=== PATIENT | female | born 1950 | race Caucasian/White ===

== ENCOUNTER 2020-11-04 22:51 | Inpatient (IN) | payer OTHER, SELFPAY ==
[~2020-11-04] VITALS: Ht 152.4 cm; Wt 74.8 kg
[2020-11-04 23:00] VITALS: BP_SYST 146
[2020-11-04] MEDS ORDERED: AZITHROMYCIN 250 MG TABLET PO ONE (23:15)
[2020-11-04] MEDS ORDERED: cefTRIAXone 1 GM in LIDOCAINE 1%, 20 ML MDV 2.1 ML IM ONE (23:15)
[2020-11-04] MEDS ORDERED: DEXAMETHASONE SOD PHOSPHATE 10 MG/ML VIAL IM ONE (23:15)
[2020-11-04] MEDS ORDERED: DEXAMETHASONE SOD PHOSPHATE 10 MG/ML VIAL IVP ONE (23:45)
[2020-11-04] MEDS ORDERED: cefTRIAXone 1 GM IVPB PREMIX 50 ML IV ONE (23:45)
[2020-11-04] MEDS ORDERED: AZITHROMYCIN 500 MG in NS 250 ML IV ONE (23:45)
[2020-11-05] VITALS (18 sets, daily range): BP systolic 86–158
[2020-11-05 00:05] LABS: HEMATOCRIT 41.7 % (36-48); HEMOGLOBIN 14.1 g/dL (12.0-16.0); MEAN CORPUSCULAR VOLUME 91 fL (79.0-98.0); RED BLOOD CELL COUNT(AUTO) 4.58 MIL/uL (4.2-6.2); WHITE BLOOD COUNT (AUTO) 14.9 K/uL (4.8-10.8)
[2020-11-05 00:06] LABS: BASOPHILS # (AUTO) 0.1 K/uL (0.0-0.2); BASOPHILS % (AUTO) 0.6 % (0.0-2.0); LYMPHOCYTES # (AUTO) 1.6 K/uL (1.0-5.5); LYMPHOCYTES % (AUTO) 11.1 % (20.5-51.5); MEAN CORPUSCULAR HEMOGLOBIN 31 pg (27-31); MEAN CORPUSCULAR HGB CONC 34 % (32-36); MONOCYTES # (AUTO) 0.9 K/uL (0.0-1.0); MONOCYTES % (AUTO) 6.4 % (1.7-9.3); NEUTROPHILS # (AUTO) 12.2 K/uL (1.8-7.7); NEUTROPHILS % (AUTO) 81.9 % (40.0-70.0); PLATELET COUNT (AUTO) 292 K/uL (130-430); RED CELL DISTRIBUTION WIDTH 14.1 % (9.0-15.0)
[2020-11-05] MEDS ORDERED: AZITHROMYCIN 500 MG/VIAL (ZITHROMAX) IV ONE (00:11)
[2020-11-05 00:16] LABS: INR 1.2 (0.8-1.2); PROTHROMBIN TIME 11.8 SECS (9.5-12.5)
[2020-11-05 00:26] LABS: ALBUMIN 2.5 g/dL (3.4-4.8); CALCIUM 8.7 mg/dL (8.4-11.0); CREATININE 1.13 mg/dL (0.55-1.30); TOTAL BILIRUBIN 0.5 mg/dL (0.0-1.0)
[2020-11-05] MEDS ORDERED: DILT180C67 PO (00:29)
[2020-11-05] MEDS ORDERED: NACL 0.9% 1,000 ML IV ONE (00:45)
[2020-11-05] MEDS ORDERED: ENOXAPARIN SODIUM 60 MG/0.6 ML SYRINGE SUBCUT ONE ×2 (00:45→12:00)
[2020-11-05] MEDS ORDERED: ENOXAPARIN SODIUM 80 MG/0.8 ML SYRINGE ONE (01:04)
[2020-11-05 01:10] LABS: C-REACTIVE PROTEIN QUANT 28.3 mg/dL (0-0.5)
[2020-11-05] MEDS ORDERED: ONDANSETRON HCL 4 MG/2 ML VIAL IVP PRN (02:15)
[2020-11-05] MEDS ORDERED: POTASSIUM CHLORIDE 20 MEQ TAB.PRT.SR PO PRN ×2 (08:15→09:00)
[2020-11-05] MEDS ORDERED: MAGNESIUM OXIDE 400 MG TABLET PO PRN (08:15)
[2020-11-05] MEDS ORDERED: DEXTROSE 50% JECT 50 ML DISP.SYRIN IVP PRN (09:00)
[2020-11-05] MEDS: DEXAMETHASONE SOD PHOSPHATE 10 MG/ML VIAL IVP SCH (09:00)
[2020-11-05] MEDS ORDERED: ENOXAPARIN SODIUM 40 MG/0.4 ML SYRINGE SUBCUT ONE (09:00)
[2020-11-05] MEDS ORDERED: DILTIAZEM HCL 180 MG CAP.SR.24H PO ONE (09:15)
[2020-11-05] MEDS ORDERED: guaiFENesin ER 600 MG TAB PO ONE (10:00)
[2020-11-05] MEDS ORDERED: MELATONIN 3 MG TABLET PO PRN (10:00)
[2020-11-05] MEDS: ASCORBIC ACID 500 MG TABLET PO SCH (10:45)
[2020-11-05] MEDS: CHOLECALCIFEROL (VITAMIN D-3) 400 UNIT TABLET PO SCH (10:45)
[2020-11-05 11:28] LABS: BILIRUBIN,URINE NEGATIVE (NEGATIVE); COLOR,URINE YELLOW (YELLOW); GLUCOSE,URINE NEGATIVE (NEGATIVE); KETONES,URINE NEGATIVE (NEGATIVE); LEUKOCYTE ESTERASE ,URINE NEGATIVE (NEGATIVE); NITRITE, URINE POSITIVE (NEGATIVE); PH,URINE 6.5 (5.0-8.0); PROTEIN URINE NEGATIVE (NEGATIVE); UROBILINOGEN,URINE 0.2 (0.2-1.0)
[2020-11-05] MEDS ORDERED: *LOVENOX0.75MG/KG Q12H/PHARMACY XX ONE (11:30)
[2020-11-05] MEDS: AZITHROMYCIN 500 MG in NS 250 ML IV SCH (12:00)
[2020-11-05 12:39] LABS: BLOOD, URINE TRACE (NEGATIVE)
[2020-11-05 12:40] LABS: CLARITY/URINE SLIGHTLY HAZY (CLEAR)
[2020-11-05 12:49] LABS: BACTERIA,URINE FEW /HPF (None Seen); MUCUS,URINE 1+ /LPF (None Seen); RBC,URINE 0-3 /HPF (0-3); WBC,URINE 0-3 /HPF (0-3)
[2020-11-05] MEDS: PIPERACILLIN/TAZO 2.25G/DEX-IS 50 ML IV SCH ×2 (13:00→18:30)
[2020-11-05] MEDS ORDERED: cefTRIAXone 1 GM in D5W 50 ML IV SCH (21:00)
[2020-11-05] MEDS ORDERED: AZITHROMYCIN 250 MG TABLET PO SCH (21:00)
[2020-11-05] MEDS: guaiFENesin ER 600 MG TAB PO SCH (21:21)
[2020-11-05] MEDS: ENOXAPARIN SODIUM 60 MG/0.6 ML SYRINGE SUBCUT SCH (21:22)
[2020-11-06] VITALS (24 sets, daily range): BP systolic 122–152
[2020-11-06] MEDS: PIPERACILLIN/TAZO 2.25G/DEX-IS 50 ML IV SCH ×4 (02:46→17:23)
[2020-11-06 06:25] LABS: BASOPHILS % (AUTO) 0.2 % (0.0-2.0); HEMATOCRIT 36.6 % (36-48); HEMOGLOBIN 12.3 g/dL (12.0-16.0); LYMPHOCYTES # (AUTO) 2.4 K/uL (1.0-5.5); LYMPHOCYTES % (AUTO) 12.7 % (20.5-51.5); MEAN CORPUSCULAR HEMOGLOBIN 31 pg (27-31); MEAN CORPUSCULAR HGB CONC 34 % (32-36); MEAN CORPUSCULAR VOLUME 91 fL (79.0-98.0); MONOCYTES % (AUTO) 5.4 % (1.7-9.3); NEUTROPHILS # (AUTO) 15.6 K/uL (1.8-7.7); NEUTROPHILS % (AUTO) 81.7 % (40.0-70.0); PLATELET COUNT (AUTO) 339 K/uL (130-430); RED BLOOD CELL COUNT(AUTO) 4.02 MIL/uL (4.2-6.2); RED CELL DISTRIBUTION WIDTH 13.8 % (9.0-15.0); WHITE BLOOD COUNT (AUTO) 19.1 K/uL (4.8-10.8)
[2020-11-06 07:54] LABS: ALBUMIN 2.3 g/dL (3.4-4.8); CALCIUM 8.8 mg/dL (8.4-11.0); CREATININE 0.81 mg/dL (0.55-1.30); POTASSIUM 4.2 mmol/L (3.5-5.1); TOTAL BILIRUBIN 0.4 mg/dL (0.0-1.0)
[2020-11-06] MEDS: DEXAMETHASONE SOD PHOSPHATE 10 MG/ML VIAL IVP SCH (08:48)
[2020-11-06] MEDS: guaiFENesin ER 600 MG TAB PO SCH ×2 (08:48→22:18)
[2020-11-06] MEDS: ASCORBIC ACID 500 MG TABLET PO SCH (08:48)
[2020-11-06] MEDS: CHOLECALCIFEROL (VITAMIN D-3) 400 UNIT TABLET PO SCH (08:48)
[2020-11-06] MEDS: ENOXAPARIN SODIUM 60 MG/0.6 ML SYRINGE SUBCUT SCH ×2 (08:49→22:19)
[2020-11-06] MEDS: DILTIAZEM HCL 180 MG CAP.SR.24H PO SCH (08:49)
[2020-11-06] MEDS ORDERED: ENOXAPARIN SODIUM 40 MG/0.4 ML SYRINGE SUBCUT SCH (09:00)
[2020-11-06] MEDS: AZITHROMYCIN 500 MG in NS 250 ML IV SCH (11:44)
[2020-11-06] MEDS: LORazepam 2 MG/ML VIAL IVP PRN (11:47)
[2020-11-06] MEDS: INSULIN LISPRO SLIDING SCALE 100 UNITS/ML VIAL (humaLOG) SUBCUT PRN (17:55)
[2020-11-07] VITALS (23 sets, daily range): BP systolic 125–152
[2020-11-07] MEDS: PIPERACILLIN/TAZO 2.25G/DEX-IS 50 ML IV SCH ×4 (05:43→17:31)
[2020-11-07 06:26] LABS: BASOPHILS # (AUTO) 0.1 K/uL (0.0-0.2); BASOPHILS % (AUTO) 0.3 % (0.0-2.0); HEMATOCRIT 36.3 % (36-48); HEMOGLOBIN 12.2 g/dL (12.0-16.0); LYMPHOCYTES # (AUTO) 2.2 K/uL (1.0-5.5); LYMPHOCYTES % (AUTO) 10.9 % (20.5-51.5); MEAN CORPUSCULAR HEMOGLOBIN 31 pg (27-31); MEAN CORPUSCULAR HGB CONC 34 % (32-36); MEAN CORPUSCULAR VOLUME 91 fL (79.0-98.0); MONOCYTES # (AUTO) 1.1 K/uL (0.0-1.0); MONOCYTES % (AUTO) 5.6 % (1.7-9.3); NEUTROPHILS # (AUTO) 16.8 K/uL (1.8-7.7); NEUTROPHILS % (AUTO) 83.2 % (40.0-70.0); PLATELET COUNT (AUTO) 343 K/uL (130-430); RED BLOOD CELL COUNT(AUTO) 3.97 MIL/uL (4.2-6.2); RED CELL DISTRIBUTION WIDTH 14.1 % (9.0-15.0); WHITE BLOOD COUNT (AUTO) 20.2 K/uL (4.8-10.8)
[2020-11-07] MEDS: INSULIN LISPRO SLIDING SCALE 100 UNITS/ML VIAL (humaLOG) SUBCUT PRN ×2 (06:50→12:37)
[2020-11-07 07:04] LABS: CALCIUM 8.7 mg/dL (8.4-11.0); CREATININE 0.78 mg/dL (0.55-1.30)
[2020-11-07] MEDS: guaiFENesin ER 600 MG TAB PO SCH ×2 (09:50→22:36)
[2020-11-07] MEDS: ASCORBIC ACID 500 MG TABLET PO SCH (09:51)
[2020-11-07] MEDS: CHOLECALCIFEROL (VITAMIN D-3) 400 UNIT TABLET PO SCH (09:51)
[2020-11-07] MEDS: DEXAMETHASONE SOD PHOSPHATE 10 MG/ML VIAL IVP SCH (09:51)
[2020-11-07] MEDS: DILTIAZEM HCL 180 MG CAP.SR.24H PO SCH (09:51)
[2020-11-07] MEDS: ENOXAPARIN SODIUM 60 MG/0.6 ML SYRINGE SUBCUT SCH ×2 (09:54→22:36)
[2020-11-07] MEDS: AZITHROMYCIN 500 MG in NS 250 ML IV SCH (12:30)
[2020-11-08] VITALS (24 sets, daily range): BP systolic 125–182
[2020-11-08] MEDS: PIPERACILLIN/TAZO 2.25G/DEX-IS 50 ML IV SCH ×4 (01:08→18:22)
[2020-11-08 06:42] LABS: HEMATOCRIT 37.3 % (36-48); HEMOGLOBIN 12.4 g/dL (12.0-16.0); LYMPHOCYTES # (AUTO) 1.8 K/uL (1.0-5.5); LYMPHOCYTES % (AUTO) 10.5 % (20.5-51.5); MEAN CORPUSCULAR HEMOGLOBIN 30 pg (27-31); MEAN CORPUSCULAR HGB CONC 33 % (32-36); MEAN CORPUSCULAR VOLUME 91 fL (79.0-98.0); MONOCYTES # (AUTO) 0.9 K/uL (0.0-1.0); MONOCYTES % (AUTO) 5.3 % (1.7-9.3); NEUTROPHILS # (AUTO) 14.3 K/uL (1.8-7.7); NEUTROPHILS % (AUTO) 84.2 % (40.0-70.0); PLATELET COUNT (AUTO) 326 K/uL (130-430); RED BLOOD CELL COUNT(AUTO) 4.08 MIL/uL (4.2-6.2); RED CELL DISTRIBUTION WIDTH 13.7 % (9.0-15.0)
[2020-11-08 08:18] LABS: ALBUMIN 2.4 g/dL (3.4-4.8); C-REACTIVE PROTEIN QUANT 5.5 mg/dL (0-0.5); CALCIUM 8.1 mg/dL (8.4-11.0); CREATININE 0.76 mg/dL (0.55-1.30); TOTAL BILIRUBIN 0.6 mg/dL (0.0-1.0)
[2020-11-08 08:53] LABS: ERYTHROCYTE SEDIMENTATION RATE 32 MM/HR (0-20)
[2020-11-08] MEDS: DEXAMETHASONE SOD PHOSPHATE 10 MG/ML VIAL IVP SCH (10:11)
[2020-11-08] MEDS: ENOXAPARIN SODIUM 60 MG/0.6 ML SYRINGE SUBCUT SCH ×2 (10:11→21:49)
[2020-11-08] MEDS: guaiFENesin ER 600 MG TAB PO SCH ×2 (12:43→21:50)
[2020-11-08] MEDS: DILTIAZEM HCL 180 MG CAP.SR.24H PO SCH (12:43)
[2020-11-08] MEDS: ASCORBIC ACID 500 MG TABLET PO SCH (12:43)
[2020-11-08] MEDS: CHOLECALCIFEROL (VITAMIN D-3) 400 UNIT TABLET PO SCH (12:44)
[2020-11-08] MEDS: AZITHROMYCIN 500 MG in NS 250 ML IV SCH (12:54)
[2020-11-08] MEDS: LORazepam 2 MG/ML VIAL IVP PRN (15:02)
[2020-11-08] MEDS: methylPREDNISolone SOD SUCC 40 MG/ML VIAL IVP SCH (21:50)
[2020-11-09] VITALS (24 sets, daily range): BP systolic 114–174
[2020-11-09] MEDS: PIPERACILLIN/TAZO 2.25G/DEX-IS 50 ML IV SCH ×4 (00:52→17:21)
[2020-11-09 08:42] LABS: BASOPHILS # (AUTO) 0.1 K/uL (0.0-0.2); BASOPHILS % (AUTO) 0.4 % (0.0-2.0); LYMPHOCYTES # (AUTO) 1.6 K/uL (1.0-5.5); LYMPHOCYTES % (AUTO) 9.7 % (20.5-51.5); MEAN CORPUSCULAR HEMOGLOBIN 31 pg (27-31); MEAN CORPUSCULAR HGB CONC 33 % (32-36); MEAN CORPUSCULAR VOLUME 91 fL (79.0-98.0); MONOCYTES # (AUTO) 0.7 K/uL (0.0-1.0); MONOCYTES % (AUTO) 4.1 % (1.7-9.3); NEUTROPHILS # (AUTO) 14.3 K/uL (1.8-7.7); NEUTROPHILS % (AUTO) 85.8 % (40.0-70.0); PLATELET COUNT (AUTO) 336 K/uL (130-430); RED BLOOD CELL COUNT(AUTO) 4.27 MIL/uL (4.2-6.2); RED CELL DISTRIBUTION WIDTH 13.8 % (9.0-15.0); WHITE BLOOD COUNT (AUTO) 16.7 K/uL (4.8-10.8)
[2020-11-09 08:53] LABS: C-REACTIVE PROTEIN QUANT 5.5 mg/dL (0-0.5); CALCIUM 8.1 mg/dL (8.4-11.0); CREATININE 0.83 mg/dL (0.55-1.30)
[2020-11-09] MEDS: guaiFENesin ER 600 MG TAB PO SCH ×2 (09:00→20:15)
[2020-11-09] MEDS: methylPREDNISolone SOD SUCC 40 MG/ML VIAL IVP SCH ×2 (09:21→20:09)
[2020-11-09] MEDS: DILTIAZEM HCL 180 MG CAP.SR.24H PO SCH (09:22)
[2020-11-09] MEDS: CHOLECALCIFEROL (VITAMIN D-3) 400 UNIT TABLET PO SCH (09:22)
[2020-11-09] MEDS: ASCORBIC ACID 500 MG TABLET PO SCH (09:22)
[2020-11-09] MEDS: ENOXAPARIN SODIUM 60 MG/0.6 ML SYRINGE SUBCUT SCH ×2 (09:23→20:10)
[2020-11-09 09:26] LABS: ERYTHROCYTE SEDIMENTATION RATE 29 MM/HR (0-20)
[2020-11-09] MEDS: AZITHROMYCIN 500 MG in NS 250 ML IV SCH (13:08)
[2020-11-09] MEDS ORDERED: methylPREDNISolone SOD SUCC 40 MG/ML VIAL ONE (20:08)
[2020-11-09] MEDS ORDERED: ENOXAPARIN SODIUM 60 MG/0.6 ML SYRINGE ONE (20:09)
[2020-11-10] VITALS (23 sets, daily range): BP systolic 136–168
[2020-11-10] MEDS: PIPERACILLIN/TAZO 2.25G/DEX-IS 50 ML IV SCH ×4 (00:06→17:39)
[2020-11-10] MEDS: ASCORBIC ACID 500 MG TABLET PO SCH (08:36)
[2020-11-10] MEDS: DILTIAZEM HCL 180 MG CAP.SR.24H PO SCH (08:36)
[2020-11-10] MEDS: guaiFENesin ER 600 MG TAB PO SCH ×2 (08:36→20:23)
[2020-11-10] MEDS: CHOLECALCIFEROL (VITAMIN D-3) 400 UNIT TABLET PO SCH (08:36)
[2020-11-10] MEDS: ENOXAPARIN SODIUM 60 MG/0.6 ML SYRINGE SUBCUT SCH ×2 (08:38→20:27)
[2020-11-10 10:39] LABS: BASOPHILS # (AUTO) 0.1 K/uL (0.0-0.2); BASOPHILS % (AUTO) 0.2 % (0.0-2.0); HEMOGLOBIN 13.1 g/dL (12.0-16.0); LYMPHOCYTES # (AUTO) 2.1 K/uL (1.0-5.5); LYMPHOCYTES % (AUTO) 10.2 % (20.5-51.5); MEAN CORPUSCULAR HEMOGLOBIN 31 pg (27-31); MEAN CORPUSCULAR HGB CONC 34 % (32-36); MEAN CORPUSCULAR VOLUME 91 fL (79.0-98.0); MONOCYTES # (AUTO) 0.6 K/uL (0.0-1.0); MONOCYTES % (AUTO) 3.2 % (1.7-9.3); NEUTROPHILS # (AUTO) 17.6 K/uL (1.8-7.7); PLATELET COUNT (AUTO) 358 K/uL (130-430); RED CELL DISTRIBUTION WIDTH 13.8 % (9.0-15.0); WHITE BLOOD COUNT (AUTO) 20.4 K/uL (4.8-10.8)
[2020-11-10 11:04] LABS: C-REACTIVE PROTEIN QUANT 3.1 mg/dL (0-0.5); CALCIUM 8.1 mg/dL (8.4-11.0); CREATININE 0.68 mg/dL (0.55-1.30); POTASSIUM 3.8 mmol/L (3.5-5.1)
[2020-11-10] MEDS: methylPREDNISolone SOD SUCC 40 MG/ML VIAL IVP SCH ×2 (11:18→20:22)
[2020-11-10 11:40] LABS: ERYTHROCYTE SEDIMENTATION RATE 31 MM/HR (0-20)
[2020-11-10] MEDS: FLUCONAZOLE 100 mg/ NS 50 ML IV SCH (12:21)
[2020-11-10 14:02] LABS: NEUTROPHILS % (AUTO) 86.4 % (40.0-70.0)
[2020-11-10] MEDS ORDERED: *TPN PER PHARMACY XX PRN (17:30)
[2020-11-11] VITALS (26 sets, daily range): BP systolic 115–173
[2020-11-11] MEDS: PIPERACILLIN/TAZO 2.25G/DEX-IS 50 ML IV SCH ×5 (02:00→23:26)
[2020-11-11] MEDS: LORazepam 2 MG/ML VIAL IVP PRN ×2 (05:24→05:25)
[2020-11-11 06:56] LABS: ALBUMIN 2.3 g/dL (3.4-4.8); CALCIUM 7.8 mg/dL (8.4-11.0); CREATININE 0.85 mg/dL (0.55-1.30); PHOSPHORUS 3.2 mg/dL (2.7-4.5); POTASSIUM 3.9 mmol/L (3.5-5.1); TOTAL BILIRUBIN 0.5 mg/dL (0.0-1.0)
[2020-11-11 07:43] LABS: C-REACTIVE PROTEIN QUANT 13.1 mg/dL (0-0.5)
[2020-11-11 08:09] LABS: ERYTHROCYTE SEDIMENTATION RATE 43 MM/HR (0-20)
[2020-11-11] MEDS: methylPREDNISolone SOD SUCC 40 MG/ML VIAL IVP SCH ×2 (08:56→21:56)
[2020-11-11] MEDS: guaiFENesin ER 600 MG TAB PO SCH ×2 (08:57→21:56)
[2020-11-11] MEDS: ASCORBIC ACID 500 MG TABLET PO SCH (08:57)
[2020-11-11] MEDS: DILTIAZEM HCL 180 MG CAP.SR.24H PO SCH (08:57)
[2020-11-11] MEDS: CHOLECALCIFEROL (VITAMIN D-3) 400 UNIT TABLET PO SCH (08:58)
[2020-11-11] MEDS: ENOXAPARIN SODIUM 60 MG/0.6 ML SYRINGE SUBCUT SCH ×2 (09:01→21:58)
[2020-11-11 09:22] LABS: BASOPHILS # (AUTO) 0.1 K/uL (0.0-0.2); BASOPHILS % (AUTO) 0.4 % (0.0-2.0); HEMOGLOBIN 13.7 g/dL (12.0-16.0); LYMPHOCYTES % (AUTO) 5.9 % (20.5-51.5); MEAN CORPUSCULAR HEMOGLOBIN 30 pg (27-31); MEAN CORPUSCULAR HGB CONC 33 % (32-36); MEAN CORPUSCULAR VOLUME 91 fL (79.0-98.0); MONOCYTES # (AUTO) 0.4 K/uL (0.0-1.0); MONOCYTES % (AUTO) 2.2 % (1.7-9.3); NEUTROPHILS % (AUTO) 91.5 % (40.0-70.0); PLATELET COUNT (AUTO) 368 K/uL (130-430); RED CELL DISTRIBUTION WIDTH 14.1 % (9.0-15.0); WHITE BLOOD COUNT (AUTO) 16.4 K/uL (4.8-10.8)
[2020-11-11] MEDS: FLUCONAZOLE 100 mg/ NS 50 ML IV SCH (11:33)
[2020-11-11] MEDS ORDERED: TPN CENTRAL IV SCH ×9 (21:00)
[2020-11-11] MEDS ORDERED: K PHOS IV SCH ×9 (21:00)
[2020-11-11] MEDS ORDERED: POTASSIUM CHLORIDE IV SCH ×9 (21:00)
[2020-11-11] MEDS ORDERED: [UNRECOGNIZED DRUG - OTHER] IV SCH ×9 (21:00)
[2020-11-11] MEDS ORDERED: SODIUM ACETATE IV SCH ×9 (21:00)
[2020-11-12] VITALS (25 sets, daily range): BP systolic 108–171
[2020-11-12] MEDS: PIPERACILLIN/TAZO 2.25G/DEX-IS 50 ML IV SCH (05:13)
[2020-11-12 06:50] LABS: BASOPHILS % (AUTO) 0.2 % (0.0-2.0); HEMATOCRIT 40.8 % (36-48); HEMOGLOBIN 13.6 g/dL (12.0-16.0); LYMPHOCYTES # (AUTO) 1.1 K/uL (1.0-5.5); LYMPHOCYTES % (AUTO) 6.1 % (20.5-51.5); MEAN CORPUSCULAR HEMOGLOBIN 30 pg (27-31); MEAN CORPUSCULAR HGB CONC 33 % (32-36); MEAN CORPUSCULAR VOLUME 91 fL (79.0-98.0); MONOCYTES # (AUTO) 0.5 K/uL (0.0-1.0); MONOCYTES % (AUTO) 2.7 % (1.7-9.3); NEUTROPHILS # (AUTO) 16.5 K/uL (1.8-7.7); PLATELET COUNT (AUTO) 380 K/uL (130-430); RED BLOOD CELL COUNT(AUTO) 4.47 MIL/uL (4.2-6.2); WHITE BLOOD COUNT (AUTO) 18.1 K/uL (4.8-10.8)
[2020-11-12 07:00] LABS: C-REACTIVE PROTEIN QUANT 6.5 mg/dL (0-0.5); CALCIUM 8.5 mg/dL (8.4-11.0); CREATININE 0.76 mg/dL (0.55-1.30); POTASSIUM 4.1 mmol/L (3.5-5.1)
[2020-11-12] MEDS: CHOLECALCIFEROL (VITAMIN D-3) 400 UNIT TABLET PO SCH (09:01)
[2020-11-12] MEDS: guaiFENesin ER 600 MG TAB PO SCH ×2 (09:01→21:20)
[2020-11-12] MEDS: DILTIAZEM HCL 180 MG CAP.SR.24H PO SCH (09:02)
[2020-11-12] MEDS: ASCORBIC ACID 500 MG TABLET PO SCH (09:02)
[2020-11-12] MEDS: methylPREDNISolone SOD SUCC 40 MG/ML VIAL IVP SCH ×2 (09:03→21:20)
[2020-11-12] MEDS: ENOXAPARIN SODIUM 60 MG/0.6 ML SYRINGE SUBCUT SCH ×2 (09:04→21:20)
[2020-11-12 09:27] LABS: PHOSPHORUS 2.8 mg/dL (2.7-4.5)
[2020-11-12 09:42] LABS: ERYTHROCYTE SEDIMENTATION RATE 34 MM/HR (0-20)
[2020-11-12] MEDS ORDERED: MORPHINE 2 MG/ML INJ. SYRINGE IVP PRN (10:00)
[2020-11-12] MEDS ORDERED: NALOXONE HCL 0.4 MG/ML AMP (NARCAN) IVP PRN (10:00)
[2020-11-12] MEDS: FLUCONAZOLE 100 mg/ NS 50 ML IV SCH (11:08)
[2020-11-12] MEDS ORDERED: TPN CENTRAL 0.0001 ML, SODIUM ACETATE 40 MEQ, POTASSIUM CHLORIDE 20 MEQ, K PHOS 9 MM, C... IV SCH ×8 (21:00)
[2020-11-13] VITALS (29 sets, daily range): BP systolic 63–167
[2020-11-13 07:28] LABS: CALCIUM 9.1 mg/dL (8.4-11.0); CREATININE 0.64 mg/dL (0.55-1.30); PHOSPHORUS 2.1 mg/dL (2.7-4.5); POTASSIUM 3.9 mmol/L (3.5-5.1)
[2020-11-13 07:34] LABS: BASOPHILS # (AUTO) 0.1 K/uL (0.0-0.2); BASOPHILS % (AUTO) 0.3 % (0.0-2.0); EOSINOPHILS % (AUTO) 0.2 % (0.0-4.0); HEMATOCRIT 42.5 % (36-48); HEMOGLOBIN 14.3 g/dL (12.0-16.0); LYMPHOCYTES # (AUTO) 1.9 K/uL (1.0-5.5); LYMPHOCYTES % (AUTO) 8.7 % (20.5-51.5); MEAN CORPUSCULAR HEMOGLOBIN 31 pg (27-31); MEAN CORPUSCULAR HGB CONC 34 % (32-36); MEAN CORPUSCULAR VOLUME 91 fL (79.0-98.0); MONOCYTES # (AUTO) 0.7 K/uL (0.0-1.0); MONOCYTES % (AUTO) 3.2 % (1.7-9.3); NEUTROPHILS # (AUTO) 19.2 K/uL (1.8-7.7); NEUTROPHILS % (AUTO) 87.6 % (40.0-70.0); PLATELET COUNT (AUTO) 366 K/uL (130-430); RED BLOOD CELL COUNT(AUTO) 4.67 MIL/uL (4.2-6.2); WHITE BLOOD COUNT (AUTO) 21.9 K/uL (4.8-10.8)
[2020-11-13 08:38] LABS: C-REACTIVE PROTEIN QUANT 3.3 mg/dL (0-0.5)
[2020-11-13] MEDS: methylPREDNISolone SOD SUCC 40 MG/ML VIAL IVP SCH ×2 (08:42→20:52)
[2020-11-13] MEDS: guaiFENesin ER 600 MG TAB PO SCH ×2 (08:42→20:52)
[2020-11-13] MEDS: ENOXAPARIN SODIUM 60 MG/0.6 ML SYRINGE SUBCUT SCH ×2 (08:42→20:53)
[2020-11-13] MEDS: CHOLECALCIFEROL (VITAMIN D-3) 400 UNIT TABLET PO SCH (08:43)
[2020-11-13] MEDS: ASCORBIC ACID 500 MG TABLET PO SCH (08:43)
[2020-11-13] MEDS: DILTIAZEM HCL 180 MG CAP.SR.24H PO SCH (08:43)
[2020-11-13 10:16] LABS: ERYTHROCYTE SEDIMENTATION RATE 25 MM/HR (0-20)
[2020-11-13] MEDS ORDERED: NALOXONE HCL 0.4 MG/ML AMP (NARCAN) IVP PRN (11:15)
[2020-11-13] MEDS ORDERED: MIDAZOLAM HCL IN 0.9 % NACL/PF 50 ML IV PRN (12:15)
[2020-11-13] MEDS: MORPHINE I.V. DRIP 100 ML IV PRN (12:22)
[2020-11-13] MEDS: FLUCONAZOLE 100 mg/ NS 50 ML IV SCH (12:23)
[2020-11-13] MEDS: LORazepam 2 MG/ML VIAL IVP PRN (12:38)
[2020-11-13] MEDS: PROPOFOL DRIP 100 ML IV PRN (13:03)
[2020-11-13] MEDS: NOREPINEPHRINE BITARTRATE 4 MG in D5W 246 ML IV PRN ×2 (15:14→18:51)
[2020-11-13] MEDS ORDERED: NOREPINEPHRINE 4 MG/4 ML VIAL IV ONE ×3 (18:39→22:40)
[2020-11-13] MEDS ORDERED: TPN CENTRAL 0.0001 ML, SODIUM ACETATE 40 MEQ, POTASSIUM CHLORIDE 20 MEQ, K PHOS 12 MM, ... IV SCH ×7 (21:00)
[2020-11-14] VITALS (29 sets, daily range): BP systolic 97–179
[2020-11-14] MEDS: NOREPINEPHRINE BITARTRATE 4 MG in D5W 246 ML IV PRN ×3 (00:17→20:35)
[2020-11-14] MEDS: PROPOFOL DRIP 100 ML IV PRN (02:04)
[2020-11-14] MEDS ORDERED: NOREPINEPHRINE 4 MG/4 ML VIAL IV ONE ×2 (03:59→20:04)
[2020-11-14 07:22] LABS: BASOPHILS # (AUTO) 0.1 K/uL (0.0-0.2); BASOPHILS % (AUTO) 0.5 % (0.0-2.0); EOSINOPHILS % (AUTO) 0.1 % (0.0-4.0); HEMATOCRIT 43.4 % (36-48); HEMOGLOBIN 14.4 g/dL (12.0-16.0); LYMPHOCYTES # (AUTO) 1.3 K/uL (1.0-5.5); LYMPHOCYTES % (AUTO) 4.5 % (20.5-51.5); MEAN CORPUSCULAR HEMOGLOBIN 31 pg (27-31); MEAN CORPUSCULAR HGB CONC 33 % (32-36); MEAN CORPUSCULAR VOLUME 92 fL (79.0-98.0); MONOCYTES # (AUTO) 0.9 K/uL (0.0-1.0); NEUTROPHILS # (AUTO) 26.7 K/uL (1.8-7.7); NEUTROPHILS % (AUTO) 91.9 % (40.0-70.0); PLATELET COUNT (AUTO) 464 K/uL (130-430); RED BLOOD CELL COUNT(AUTO) 4.72 MIL/uL (4.2-6.2); RED CELL DISTRIBUTION WIDTH 14.2 % (9.0-15.0)
[2020-11-14 07:39] LABS: ALBUMIN 2.4 g/dL (3.4-4.8); CALCIUM 8.9 mg/dL (8.4-11.0); CREATININE 1.54 mg/dL (0.55-1.30); PHOSPHORUS 3.7 mg/dL (2.7-4.5); POTASSIUM 4.3 mmol/L (3.5-5.1); TOTAL BILIRUBIN 0.4 mg/dL (0.0-1.0)
[2020-11-14] MEDS ORDERED: GLUCOSE (DEXTROSE) ORAL GEL -Adults PO PRN (08:15)
[2020-11-14] MEDS ORDERED: DEXTROSE 50%-WATER 50 ML DISP.SYRIN IVP PRN (08:15)
[2020-11-14] MEDS ORDERED: D5W 1,000 ML IV PRN (08:15)
[2020-11-14] MEDS: guaiFENesin ER 600 MG TAB PO SCH ×2 (08:43→20:38)
[2020-11-14] MEDS: methylPREDNISolone SOD SUCC 40 MG/ML VIAL IVP SCH ×2 (09:25→20:38)
[2020-11-14] MEDS: ASCORBIC ACID 500 MG TABLET PO SCH (09:25)
[2020-11-14] MEDS: CHOLECALCIFEROL (VITAMIN D-3) 400 UNIT TABLET PO SCH (09:25)
[2020-11-14] MEDS: DILTIAZEM HCL 180 MG CAP.SR.24H PO SCH (09:25)
[2020-11-14] MEDS: ENOXAPARIN SODIUM 60 MG/0.6 ML SYRINGE SUBCUT SCH (09:26)
[2020-11-14 11:44] LABS: C-REACTIVE PROTEIN QUANT 17.3 mg/dL (0-0.5)
[2020-11-14 12:28] LABS: ERYTHROCYTE SEDIMENTATION RATE 44 MM/HR (0-20)
[2020-11-14] MEDS: FLUCONAZOLE 100 mg/ NS 50 ML IV SCH (12:33)
[2020-11-14] MEDS: INSULIN REGULAR, HUMAN 100 UNITS/ML, 10 ML VIAL (humuLIN R) SUBCUT PRN ×2 (12:36→17:21)
[2020-11-14] MEDS: PIPERACILLIN/TAZO 2.25G/DEX-IS 50 ML IV SCH ×2 (13:19→17:29)
[2020-11-14] MEDS ORDERED: ENOXAPARIN SODIUM 40 MG/0.4 ML SYRINGE ONE (20:38)
[2020-11-14] MEDS ORDERED: ENOXAPARIN SODIUM 60 MG/0.6 ML SYRINGE SUBCUT SCH (21:00)
[2020-11-15] VITALS (25 sets, daily range): BP systolic 95–138
[2020-11-15] MEDS ORDERED: NOREPINEPHRINE 4 MG/4 ML VIAL IV ONE ×3 (00:40→17:07)
[2020-11-15] MEDS: PIPERACILLIN/TAZO 2.25G/DEX-IS 50 ML IV SCH ×5 (00:55→23:05)
[2020-11-15] MEDS: INSULIN REGULAR, HUMAN 100 UNITS/ML, 10 ML VIAL (humuLIN R) SUBCUT PRN ×4 (01:08→17:37)
[2020-11-15 06:18] LABS: CALCIUM 8.7 mg/dL (8.4-11.0); CREATININE 0.98 mg/dL (0.55-1.30); POTASSIUM 4.8 mmol/L (3.5-5.1)
[2020-11-15 06:29] LABS: HEMATOCRIT 40.7 % (36-48); HEMOGLOBIN 13.1 g/dL (12.0-16.0); LYMPHOCYTES % (AUTO) 7.1 % (20.5-51.5); MEAN CORPUSCULAR HEMOGLOBIN 30 pg (27-31); MEAN CORPUSCULAR HGB CONC 32 % (32-36); MEAN CORPUSCULAR VOLUME 93 fL (79.0-98.0); MONOCYTES % (AUTO) 3.3 % (1.7-9.3); NEUTROPHILS # (AUTO) 25.5 K/uL (1.8-7.7); NEUTROPHILS % (AUTO) 89.6 % (40.0-70.0); PLATELET COUNT (AUTO) 398 K/uL (130-430); RED CELL DISTRIBUTION WIDTH 14.2 % (9.0-15.0); WHITE BLOOD COUNT (AUTO) 28.5 K/uL (4.8-10.8)
[2020-11-15] MEDS: CHOLECALCIFEROL (VITAMIN D-3) 400 UNIT TABLET PO SCH (08:48)
[2020-11-15] MEDS: DILTIAZEM HCL 180 MG CAP.SR.24H PO SCH (08:48)
[2020-11-15] MEDS: ASCORBIC ACID 500 MG TABLET PO SCH (08:48)
[2020-11-15] MEDS: guaiFENesin ER 600 MG TAB PO SCH ×2 (08:48→21:00)
[2020-11-15] MEDS: methylPREDNISolone SOD SUCC 40 MG/ML VIAL IVP SCH ×2 (08:48→21:00)
[2020-11-15] MEDS ORDERED: ENOXAPARIN SODIUM 40 MG/0.4 ML SYRINGE ONE (08:59)
[2020-11-15] MEDS: ENOXAPARIN SODIUM 40 MG/0.4 ML SYRINGE SUBCUT SCH ×2 (09:00→21:00)
[2020-11-15] MEDS: FLUCONAZOLE 100 mg/ NS 50 ML IV SCH (12:38)
[2020-11-16] VITALS (26 sets, daily range): BP systolic 97–144
[2020-11-16] MEDS: INSULIN REGULAR, HUMAN 100 UNITS/ML, 10 ML VIAL (humuLIN R) SUBCUT PRN ×3 (00:11→23:51)
[2020-11-16] MEDS: PROPOFOL DRIP 100 ML IV PRN (01:03)
[2020-11-16] MEDS: MORPHINE I.V. DRIP 100 ML IV PRN (04:11)
[2020-11-16 06:30] LABS: CALCIUM 8.8 mg/dL (8.4-11.0); CREATININE 0.96 mg/dL (0.55-1.30)
[2020-11-16 06:37] LABS: BASOPHILS % (AUTO) 0.2 % (0.0-2.0); EOSINOPHILS % (AUTO) 0.1 % (0.0-4.0); HEMATOCRIT 37.9 % (36-48); HEMOGLOBIN 12.5 g/dL (12.0-16.0); LYMPHOCYTES # (AUTO) 1.9 K/uL (1.0-5.5); LYMPHOCYTES % (AUTO) 8.2 % (20.5-51.5); MEAN CORPUSCULAR HEMOGLOBIN 31 pg (27-31); MEAN CORPUSCULAR HGB CONC 33 % (32-36); MEAN CORPUSCULAR VOLUME 93 fL (79.0-98.0); MONOCYTES # (AUTO) 1.1 K/uL (0.0-1.0); MONOCYTES % (AUTO) 4.6 % (1.7-9.3); NEUTROPHILS # (AUTO) 20.6 K/uL (1.8-7.7); NEUTROPHILS % (AUTO) 86.9 % (40.0-70.0); PLATELET COUNT (AUTO) 352 K/uL (130-430); RED CELL DISTRIBUTION WIDTH 14.5 % (9.0-15.0)
[2020-11-16] MEDS: PIPERACILLIN/TAZO 2.25G/DEX-IS 50 ML IV SCH ×4 (06:56→23:52)
[2020-11-16 07:47] LABS: C-REACTIVE PROTEIN QUANT 3.4 mg/dL (0-0.5)
[2020-11-16] MEDS ORDERED: ENOXAPARIN SODIUM 40 MG/0.4 ML SYRINGE ONE (08:09)
[2020-11-16 08:17] LABS: WHITE BLOOD COUNT (AUTO) 23.7 K/uL (4.8-10.8)
[2020-11-16] MEDS: ENOXAPARIN SODIUM 40 MG/0.4 ML SYRINGE SUBCUT SCH ×2 (08:24→21:00)
[2020-11-16] MEDS: methylPREDNISolone SOD SUCC 40 MG/ML VIAL IVP SCH ×2 (08:25→21:30)
[2020-11-16] MEDS: CHOLECALCIFEROL (VITAMIN D-3) 400 UNIT TABLET PO SCH (08:25)
[2020-11-16] MEDS: guaiFENesin ER 600 MG TAB PO SCH ×2 (08:26→21:30)
[2020-11-16] MEDS: ASCORBIC ACID 500 MG TABLET PO SCH (08:26)
[2020-11-16] MEDS: DILTIAZEM HCL 180 MG CAP.SR.24H PO SCH (08:26)
[2020-11-16 10:39] LABS: ERYTHROCYTE SEDIMENTATION RATE 37 MM/HR (0-20)
[2020-11-16] MEDS: FLUCONAZOLE 100 mg/ NS 50 ML IV SCH (12:42)
[2020-11-16 20:02] LABS: PROTHROMBIN TIME 10.4 SECS (9.5-12.5)
[2020-11-17] VITALS (26 sets, daily range): BP systolic 91–116
[2020-11-17 04:41] LABS: BASOPHILS % (AUTO) 0.1 % (0.0-2.0); HEMATOCRIT 36.4 % (36-48); HEMOGLOBIN 11.9 g/dL (12.0-16.0); LYMPHOCYTES # (AUTO) 1.7 K/uL (1.0-5.5); MEAN CORPUSCULAR HEMOGLOBIN 31 pg (27-31); MEAN CORPUSCULAR HGB CONC 33 % (32-36); MEAN CORPUSCULAR VOLUME 93 fL (79.0-98.0); MONOCYTES # (AUTO) 0.7 K/uL (0.0-1.0); MONOCYTES % (AUTO) 4.3 % (1.7-9.3); NEUTROPHILS % (AUTO) 84.6 % (40.0-70.0); PLATELET COUNT (AUTO) 242 K/uL (130-430); RED BLOOD CELL COUNT(AUTO) 3.92 MIL/uL (4.2-6.2); RED CELL DISTRIBUTION WIDTH 14.5 % (9.0-15.0); WHITE BLOOD COUNT (AUTO) 15.4 K/uL (4.8-10.8)
[2020-11-17 04:54] LABS: C-REACTIVE PROTEIN QUANT 1.9 mg/dL (0-0.5); CALCIUM 8.3 mg/dL (8.4-11.0); CREATININE 0.99 mg/dL (0.55-1.30); POTASSIUM 4.8 mmol/L (3.5-5.1)
[2020-11-17 05:25] LABS: ERYTHROCYTE SEDIMENTATION RATE 28 MM/HR (0-20)
[2020-11-17] MEDS: ENOXAPARIN SODIUM 40 MG/0.4 ML SYRINGE SUBCUT SCH ×2 (08:40→22:02)
[2020-11-17] MEDS ORDERED: CHOLECALCIFEROL (VITAMIN D3) 5,000 UNIT TABLET ONE (10:18)
[2020-11-17] MEDS ORDERED: ASCORBIC ACID 500 MG TABLET ONE (10:19)
[2020-11-17] MEDS: FLUCONAZOLE 100 mg/ NS 50 ML IV SCH (12:10)
[2020-11-17] MEDS: DILTIAZEM HCL 180 MG CAP.SR.24H PO SCH (12:11)
[2020-11-17] MEDS: ASCORBIC ACID 500 MG TABLET PO SCH (12:11)
[2020-11-17] MEDS: CHOLECALCIFEROL (VITAMIN D-3) 400 UNIT TABLET PO SCH (12:11)
[2020-11-17] MEDS: guaiFENesin ER 600 MG TAB PO SCH ×2 (12:11→22:01)
[2020-11-17] MEDS: methylPREDNISolone SOD SUCC 40 MG/ML VIAL IVP SCH ×2 (12:11→22:00)
[2020-11-17] MEDS: PIPERACILLIN/TAZO 2.25G/DEX-IS 50 ML IV SCH ×2 (12:54→18:23)
[2020-11-17] MEDS: PROPOFOL DRIP 100 ML IV PRN ×2 (14:04→22:04)
[2020-11-17] MEDS: MORPHINE I.V. DRIP 100 ML IV PRN (15:52)
[2020-11-17] MEDS: INSULIN REGULAR, HUMAN 100 UNITS/ML, 10 ML VIAL (humuLIN R) SUBCUT PRN (19:21)
[2020-11-17] MEDS ORDERED: ENOXAPARIN SODIUM 40 MG/0.4 ML SYRINGE ONE (20:59)
[2020-11-18] VITALS (28 sets, daily range): BP systolic 92–141
[2020-11-18] MEDS: PIPERACILLIN/TAZO 2.25G/DEX-IS 50 ML IV SCH ×4 (00:12→17:34)
[2020-11-18] MEDS: INSULIN REGULAR, HUMAN 100 UNITS/ML, 10 ML VIAL (humuLIN R) SUBCUT PRN ×4 (00:14→17:35)
[2020-11-18 05:09] LABS: BASOPHILS # (AUTO) 0.1 K/uL (0.0-0.2); BASOPHILS % (AUTO) 0.4 % (0.0-2.0); HEMATOCRIT 36.3 % (36-48); HEMOGLOBIN 12.1 g/dL (12.0-16.0); LYMPHOCYTES # (AUTO) 0.9 K/uL (1.0-5.5); LYMPHOCYTES % (AUTO) 6.3 % (20.5-51.5); MEAN CORPUSCULAR HEMOGLOBIN 31 pg (27-31); MEAN CORPUSCULAR HGB CONC 33 % (32-36); MEAN CORPUSCULAR VOLUME 93 fL (79.0-98.0); MONOCYTES # (AUTO) 0.3 K/uL (0.0-1.0); MONOCYTES % (AUTO) 1.7 % (1.7-9.3); NEUTROPHILS # (AUTO) 13.5 K/uL (1.8-7.7); NEUTROPHILS % (AUTO) 91.6 % (40.0-70.0); PLATELET COUNT (AUTO) 235 K/uL (130-430); RED BLOOD CELL COUNT(AUTO) 3.91 MIL/uL (4.2-6.2); RED CELL DISTRIBUTION WIDTH 14.5 % (9.0-15.0); WHITE BLOOD COUNT (AUTO) 14.8 K/uL (4.8-10.8)
[2020-11-18 05:32] LABS: ALBUMIN 2.1 g/dL (3.4-4.8); CALCIUM 9.1 mg/dL (8.4-11.0); CREATININE 0.95 mg/dL (0.55-1.30); TOTAL BILIRUBIN 0.2 mg/dL (0.0-1.0)
[2020-11-18 05:57] LABS: ERYTHROCYTE SEDIMENTATION RATE 42 MM/HR (0-20)
[2020-11-18] MEDS: CHOLECALCIFEROL (VITAMIN D-3) 400 UNIT TABLET PO SCH (09:00)
[2020-11-18] MEDS: ASCORBIC ACID 500 MG TABLET PO SCH (09:00)
[2020-11-18] MEDS: methylPREDNISolone SOD SUCC 40 MG/ML VIAL IVP SCH ×2 (09:00→21:00)
[2020-11-18] MEDS: ENOXAPARIN SODIUM 40 MG/0.4 ML SYRINGE SUBCUT SCH ×2 (09:00→21:00)
[2020-11-18] MEDS: guaiFENesin ER 600 MG TAB PO SCH ×2 (09:00→21:00)
[2020-11-18] MEDS: PROPOFOL DRIP 100 ML IV PRN ×2 (09:31→16:30)
[2020-11-18] MEDS: FLUCONAZOLE 100 mg/ NS 50 ML IV SCH (11:15)
[2020-11-18 23:13] LABS: C-REACTIVE PROTEIN QUANT 5.9 mg/dL (0-0.5)
[2020-11-19] VITALS (29 sets, daily range): BP systolic 83–147
[2020-11-19 06:40] LABS: BASOPHILS % (AUTO) 0.2 % (0.0-2.0); HEMATOCRIT 36.3 % (36-48); HEMOGLOBIN 12.1 g/dL (12.0-16.0); LYMPHOCYTES # (AUTO) 0.9 K/uL (1.0-5.5); LYMPHOCYTES % (AUTO) 4.8 % (20.5-51.5); MEAN CORPUSCULAR HEMOGLOBIN 31 pg (27-31); MEAN CORPUSCULAR HGB CONC 33 % (32-36); MEAN CORPUSCULAR VOLUME 93 fL (79.0-98.0); MONOCYTES # (AUTO) 0.3 K/uL (0.0-1.0); MONOCYTES % (AUTO) 1.5 % (1.7-9.3); NEUTROPHILS # (AUTO) 17.5 K/uL (1.8-7.7); NEUTROPHILS % (AUTO) 93.5 % (40.0-70.0); PLATELET COUNT (AUTO) 231 K/uL (130-430); RED CELL DISTRIBUTION WIDTH 14.5 % (9.0-15.0); WHITE BLOOD COUNT (AUTO) 18.7 K/uL (4.8-10.8)
[2020-11-19] MEDS: PIPERACILLIN/TAZO 2.25G/DEX-IS 50 ML IV SCH ×4 (06:47→17:07)
[2020-11-19] MEDS: guaiFENesin ER 600 MG TAB PO SCH ×2 (09:40→22:06)
[2020-11-19] MEDS: methylPREDNISolone SOD SUCC 40 MG/ML VIAL IVP SCH ×2 (09:40→22:06)
[2020-11-19] MEDS: ENOXAPARIN SODIUM 40 MG/0.4 ML SYRINGE SUBCUT SCH (09:40)
[2020-11-19] MEDS: CHOLECALCIFEROL (VITAMIN D-3) 400 UNIT TABLET PO SCH (09:40)
[2020-11-19] MEDS: ASCORBIC ACID 500 MG TABLET PO SCH (09:41)
[2020-11-19 10:20] LABS: CALCIUM 9.8 mg/dL (8.4-11.0); CREATININE 0.73 mg/dL (0.55-1.30)
[2020-11-19 10:51] LABS: ERYTHROCYTE SEDIMENTATION RATE 41 MM/HR (0-20)
[2020-11-19] MEDS: FLUCONAZOLE 100 mg/ NS 50 ML IV SCH (11:15)
[2020-11-19] MEDS: PROPOFOL DRIP 100 ML IV PRN ×2 (12:11→17:55)
[2020-11-19] MEDS: INSULIN REGULAR, HUMAN 100 UNITS/ML, 10 ML VIAL (humuLIN R) SUBCUT PRN ×2 (12:53→18:40)
[2020-11-19] MEDS: MORPHINE I.V. DRIP 100 ML IV PRN (13:07)
[2020-11-20] VITALS (31 sets, daily range): BP systolic 95–124
[2020-11-20] MEDS: INSULIN REGULAR, HUMAN 100 UNITS/ML, 10 ML VIAL (humuLIN R) SUBCUT PRN ×3 (02:07→17:40)
[2020-11-20 04:26] LABS: BASOPHILS # (AUTO) 0.1 K/uL (0.0-0.2); BASOPHILS % (AUTO) 0.5 % (0.0-2.0); EOSINOPHILS # (AUTO) 0.1 K/uL (0.0-0.4); EOSINOPHILS % (AUTO) 0.2 % (0.0-4.0); HEMATOCRIT 36.2 % (36-48); HEMOGLOBIN 12.1 g/dL (12.0-16.0); LYMPHOCYTES # (AUTO) 0.6 K/uL (1.0-5.5); LYMPHOCYTES % (AUTO) 2.8 % (20.5-51.5); MEAN CORPUSCULAR HEMOGLOBIN 31 pg (27-31); MEAN CORPUSCULAR HGB CONC 34 % (32-36); MEAN CORPUSCULAR VOLUME 93 fL (79.0-98.0); MONOCYTES # (AUTO) 0.3 K/uL (0.0-1.0); MONOCYTES % (AUTO) 1.2 % (1.7-9.3); NEUTROPHILS # (AUTO) 21.3 K/uL (1.8-7.7); NEUTROPHILS % (AUTO) 95.3 % (40.0-70.0); PLATELET COUNT (AUTO) 206 K/uL (130-430); RED CELL DISTRIBUTION WIDTH 14.4 % (9.0-15.0); WHITE BLOOD COUNT (AUTO) 22.3 K/uL (4.8-10.8)
[2020-11-20 04:37] LABS: CALCIUM 8.4 mg/dL (8.4-11.0); CREATININE 0.8 mg/dL (0.55-1.30); POTASSIUM 4.9 mmol/L (3.5-5.1)
[2020-11-20 05:32] LABS: ERYTHROCYTE SEDIMENTATION RATE 44 MM/HR (0-20)
[2020-11-20] MEDS: PIPERACILLIN/TAZO 2.25G/DEX-IS 50 ML IV SCH ×5 (05:57→23:33)
[2020-11-20 07:37] LABS: C-REACTIVE PROTEIN QUANT 8.9 mg/dL (0-0.5)
[2020-11-20] MEDS: PROPOFOL DRIP 100 ML IV PRN ×2 (08:00→17:39)
[2020-11-20] MEDS: CHOLECALCIFEROL (VITAMIN D-3) 400 UNIT TABLET PO SCH (09:19)
[2020-11-20] MEDS: methylPREDNISolone SOD SUCC 40 MG/ML VIAL IVP SCH ×2 (09:19→21:44)
[2020-11-20] MEDS: ASCORBIC ACID 500 MG TABLET PO SCH (09:19)
[2020-11-20] MEDS: guaiFENesin ER 600 MG TAB PO SCH ×2 (09:19→21:44)
[2020-11-20] MEDS: FLUCONAZOLE 100 mg/ NS 50 ML IV SCH (11:15)
[2020-11-21] VITALS (29 sets, daily range): BP systolic 93–128
[2020-11-21] MEDS: PROPOFOL DRIP 100 ML IV PRN ×3 (00:30→20:30)
[2020-11-21 05:13] LABS: CALCIUM 9.1 mg/dL (8.4-11.0); CREATININE 0.73 mg/dL (0.55-1.30); POTASSIUM 4.4 mmol/L (3.5-5.1)
[2020-11-21 05:23] LABS: HEMATOCRIT 38.3 % (36-48); HEMOGLOBIN 12.7 g/dL (12.0-16.0); MEAN CORPUSCULAR HEMOGLOBIN 31 pg (27-31); MEAN CORPUSCULAR HGB CONC 33 % (32-36); MEAN CORPUSCULAR VOLUME 92 fL (79.0-98.0); PLATELET COUNT (AUTO) 198 K/uL (130-430); RED BLOOD CELL COUNT(AUTO) 4.14 MIL/uL (4.2-6.2); RED CELL DISTRIBUTION WIDTH 14.8 % (9.0-15.0); WHITE BLOOD COUNT (AUTO) 26.3 K/uL (4.8-10.8)
[2020-11-21 05:54] LABS: C-REACTIVE PROTEIN QUANT 27.3 mg/dL (0-0.5)
[2020-11-21] MEDS: PIPERACILLIN/TAZO 2.25G/DEX-IS 50 ML IV SCH ×4 (06:00→23:40)
[2020-11-21 06:40] LABS: BASOPHILS % (MANUAL) 0 % (0-2); EOSINOPHILS % (MANUAL) 0 % (0-7); LYMPHOCYTES % (MANUAL) 5 % (20-46); MONOCYTES % (MANUAL) 1 % (0-11)
[2020-11-21 06:52] LABS: ERYTHROCYTE SEDIMENTATION RATE 74 MM/HR (0-20)
[2020-11-21] MEDS: CHOLECALCIFEROL (VITAMIN D-3) 400 UNIT TABLET PO SCH (09:36)
[2020-11-21] MEDS: ASCORBIC ACID 500 MG TABLET PO SCH (09:36)
[2020-11-21] MEDS: guaiFENesin ER 600 MG TAB PO SCH ×2 (09:36→21:00)
[2020-11-21] MEDS: methylPREDNISolone SOD SUCC 40 MG/ML VIAL IVP SCH ×2 (09:36→21:00)
[2020-11-21] MEDS: FLUCONAZOLE 100 mg/ NS 50 ML IV SCH (12:11)
[2020-11-21] MEDS: MORPHINE I.V. DRIP 100 ML IV PRN (12:12)
[2020-11-21] MEDS: INSULIN REGULAR, HUMAN 100 UNITS/ML, 10 ML VIAL (humuLIN R) SUBCUT PRN ×2 (12:32→18:16)
[2020-11-21] MEDS: VANCOMYCIN HCL 1,250 MG in NS 250 ML IV SCH (15:00)
[2020-11-22] VITALS (28 sets, daily range): BP systolic 88–135
[2020-11-22] MEDS: PIPERACILLIN/TAZO 2.25G/DEX-IS 50 ML IV SCH ×3 (05:03→17:10)
[2020-11-22 05:25] LABS: BASOPHILS # (AUTO) 0.1 K/uL (0.0-0.2); BASOPHILS % (AUTO) 0.3 % (0.0-2.0); EOSINOPHILS # (AUTO) 0.3 K/uL (0.0-0.4); EOSINOPHILS % (AUTO) 1.4 % (0.0-4.0); HEMATOCRIT 35.5 % (36-48); HEMOGLOBIN 11.9 g/dL (12.0-16.0); LYMPHOCYTES # (AUTO) 1.4 K/uL (1.0-5.5); LYMPHOCYTES % (AUTO) 6.2 % (20.5-51.5); MEAN CORPUSCULAR HEMOGLOBIN 31 pg (27-31); MEAN CORPUSCULAR HGB CONC 34 % (32-36); MEAN CORPUSCULAR VOLUME 93 fL (79.0-98.0); MONOCYTES # (AUTO) 0.3 K/uL (0.0-1.0); MONOCYTES % (AUTO) 1.1 % (1.7-9.3); NEUTROPHILS # (AUTO) 21.2 K/uL (1.8-7.7); PLATELET COUNT (AUTO) 159 K/uL (130-430); RED BLOOD CELL COUNT(AUTO) 3.83 MIL/uL (4.2-6.2); RED CELL DISTRIBUTION WIDTH 14.7 % (9.0-15.0); WHITE BLOOD COUNT (AUTO) 23.3 K/uL (4.8-10.8)
[2020-11-22 05:27] LABS: CALCIUM 8.8 mg/dL (8.4-11.0); CREATININE 0.54 mg/dL (0.55-1.30); POTASSIUM 4.1 mmol/L (3.5-5.1)
[2020-11-22 05:57] LABS: C-REACTIVE PROTEIN QUANT 37.1 mg/dL (0-0.5)
[2020-11-22 07:39] LABS: ERYTHROCYTE SEDIMENTATION RATE 91 MM/HR (0-20)
[2020-11-22] MEDS: methylPREDNISolone SOD SUCC 40 MG/ML VIAL IVP SCH ×2 (09:00→22:44)
[2020-11-22] MEDS: CHOLECALCIFEROL (VITAMIN D-3) 400 UNIT TABLET PO SCH (09:00)
[2020-11-22] MEDS: guaiFENesin ER 600 MG TAB PO SCH ×2 (09:00→22:45)
[2020-11-22] MEDS: ASCORBIC ACID 500 MG TABLET PO SCH (09:00)
[2020-11-22] MEDS: PROPOFOL DRIP 100 ML IV PRN ×2 (10:44→23:20)
[2020-11-22] MEDS: FLUCONAZOLE 100 mg/ NS 50 ML IV SCH (10:54)
[2020-11-22] MEDS: INSULIN REGULAR, HUMAN 100 UNITS/ML, 10 ML VIAL (humuLIN R) SUBCUT PRN (11:17)
[2020-11-22] MEDS: MORPHINE I.V. DRIP 100 ML IV PRN (12:19)
[2020-11-22] MEDS: VANCOMYCIN HCL 1,250 MG in NS 250 ML IV SCH (15:00)
[2020-11-23] VITALS (31 sets, daily range): BP systolic 93–134
[2020-11-23] MEDS: PIPERACILLIN/TAZO 2.25G/DEX-IS 50 ML IV SCH ×5 (00:41→23:54)
[2020-11-23 06:39] LABS: BASOPHILS % (AUTO) 0.2 % (0.0-2.0); HEMOGLOBIN 11.1 g/dL (12.0-16.0); LYMPHOCYTES # (AUTO) 0.7 K/uL (1.0-5.5); LYMPHOCYTES % (AUTO) 3.1 % (20.5-51.5); MEAN CORPUSCULAR HEMOGLOBIN 30 pg (27-31); MEAN CORPUSCULAR HGB CONC 33 % (32-36); MEAN CORPUSCULAR VOLUME 93 fL (79.0-98.0); MONOCYTES # (AUTO) 0.3 K/uL (0.0-1.0); MONOCYTES % (AUTO) 1.4 % (1.7-9.3); NEUTROPHILS # (AUTO) 21.6 K/uL (1.8-7.7); NEUTROPHILS % (AUTO) 95.3 % (40.0-70.0); PLATELET COUNT (AUTO) 157 K/uL (130-430); RED BLOOD CELL COUNT(AUTO) 3.66 MIL/uL (4.2-6.2); RED CELL DISTRIBUTION WIDTH 15.3 % (9.0-15.0); WHITE BLOOD COUNT (AUTO) 22.6 K/uL (4.8-10.8)
[2020-11-23] MEDS: INSULIN REGULAR, HUMAN 100 UNITS/ML, 10 ML VIAL (humuLIN R) SUBCUT PRN ×3 (06:52→23:54)
[2020-11-23 07:11] LABS: CALCIUM 9.4 mg/dL (8.4-11.0); CREATININE 0.55 mg/dL (0.55-1.30); POTASSIUM 4.6 mmol/L (3.5-5.1)
[2020-11-23] MEDS ORDERED: ENOXAPARIN SODIUM 40 MG/0.4 ML SYRINGE SUBCUT ONE (10:00)
[2020-11-23] MEDS: guaiFENesin ER 600 MG TAB PO SCH ×2 (10:26→21:57)
[2020-11-23] MEDS: methylPREDNISolone SOD SUCC 40 MG/ML VIAL IVP SCH ×2 (10:26→21:57)
[2020-11-23] MEDS: CHOLECALCIFEROL (VITAMIN D-3) 400 UNIT TABLET PO SCH (10:27)
[2020-11-23] MEDS: ASCORBIC ACID 500 MG TABLET PO SCH (10:27)
[2020-11-23] MEDS: FLUCONAZOLE 100 mg/ NS 50 ML IV SCH (13:00)
[2020-11-23] MEDS: VANCOMYCIN HCL 1,250 MG in NS 250 ML IV SCH (14:30)
[2020-11-23] MEDS: PROPOFOL DRIP 100 ML IV PRN ×3 (15:00→23:51)
[2020-11-24] VITALS (29 sets, daily range): BP systolic 98–150
[2020-11-24] MEDS: PROPOFOL DRIP 100 ML IV PRN ×3 (03:46→23:09)
[2020-11-24 04:48] LABS: BASOPHILS % (AUTO) 0.1 % (0.0-2.0); EOSINOPHILS % (AUTO) 0.1 % (0.0-4.0); HEMATOCRIT 35.2 % (36-48); HEMOGLOBIN 11.6 g/dL (12.0-16.0); LYMPHOCYTES # (AUTO) 0.6 K/uL (1.0-5.5); LYMPHOCYTES % (AUTO) 2.7 % (20.5-51.5); MEAN CORPUSCULAR HEMOGLOBIN 31 pg (27-31); MEAN CORPUSCULAR HGB CONC 33 % (32-36); MEAN CORPUSCULAR VOLUME 93 fL (79.0-98.0); MONOCYTES # (AUTO) 0.4 K/uL (0.0-1.0); MONOCYTES % (AUTO) 1.8 % (1.7-9.3); NEUTROPHILS # (AUTO) 22.3 K/uL (1.8-7.7); NEUTROPHILS % (AUTO) 95.3 % (40.0-70.0); PLATELET COUNT (AUTO) 152 K/uL (130-430); RED BLOOD CELL COUNT(AUTO) 3.79 MIL/uL (4.2-6.2); RED CELL DISTRIBUTION WIDTH 15.1 % (9.0-15.0); WHITE BLOOD COUNT (AUTO) 23.4 K/uL (4.8-10.8)
[2020-11-24 05:04] LABS: CALCIUM 9.1 mg/dL (8.4-11.0); CREATININE 0.68 mg/dL (0.55-1.30); POTASSIUM 4.5 mmol/L (3.5-5.1)
[2020-11-24 05:05] LABS: C-REACTIVE PROTEIN QUANT 24.3 mg/dL (0-0.5)
[2020-11-24 05:21] LABS: ERYTHROCYTE SEDIMENTATION RATE 84 MM/HR (0-20)
[2020-11-24] MEDS: PIPERACILLIN/TAZO 2.25G/DEX-IS 50 ML IV SCH ×4 (06:23→23:48)
[2020-11-24] MEDS: INSULIN REGULAR, HUMAN 100 UNITS/ML, 10 ML VIAL (humuLIN R) SUBCUT PRN ×3 (06:39→23:48)
[2020-11-24] MEDS: ASCORBIC ACID 500 MG TABLET PO SCH (09:00)
[2020-11-24] MEDS: CHOLECALCIFEROL (VITAMIN D-3) 400 UNIT TABLET PO SCH (09:00)
[2020-11-24] MEDS: ENOXAPARIN SODIUM 40 MG/0.4 ML SYRINGE SUBCUT SCH (09:00)
[2020-11-24] MEDS: guaiFENesin ER 600 MG TAB PO SCH ×2 (09:00→22:44)
[2020-11-24] MEDS: methylPREDNISolone SOD SUCC 40 MG/ML VIAL IVP SCH ×2 (09:00→22:44)
[2020-11-24] MEDS: FLUCONAZOLE 100 mg/ NS 50 ML IV SCH (14:01)
[2020-11-25] VITALS (26 sets, daily range): BP systolic 96–171
[2020-11-25] MEDS: PROPOFOL DRIP 100 ML IV PRN (03:54)
[2020-11-25 04:43] LABS: BASOPHILS # (AUTO) 0.1 K/uL (0.0-0.2); BASOPHILS % (AUTO) 0.2 % (0.0-2.0); EOSINOPHILS % (AUTO) 0.1 % (0.0-4.0); HEMATOCRIT 37.6 % (36-48); HEMOGLOBIN 12.4 g/dL (12.0-16.0); LYMPHOCYTES # (AUTO) 0.8 K/uL (1.0-5.5); LYMPHOCYTES % (AUTO) 3.1 % (20.5-51.5); MEAN CORPUSCULAR HEMOGLOBIN 30 pg (27-31); MEAN CORPUSCULAR HGB CONC 33 % (32-36); MEAN CORPUSCULAR VOLUME 92 fL (79.0-98.0); MONOCYTES # (AUTO) 0.4 K/uL (0.0-1.0); MONOCYTES % (AUTO) 1.8 % (1.7-9.3); NEUTROPHILS # (AUTO) 23.1 K/uL (1.8-7.7); NEUTROPHILS % (AUTO) 94.8 % (40.0-70.0); PLATELET COUNT (AUTO) 159 K/uL (130-430); RED BLOOD CELL COUNT(AUTO) 4.09 MIL/uL (4.2-6.2); RED CELL DISTRIBUTION WIDTH 15.2 % (9.0-15.0); WHITE BLOOD COUNT (AUTO) 24.4 K/uL (4.8-10.8)
[2020-11-25 04:54] LABS: C-REACTIVE PROTEIN QUANT 16.9 mg/dL (0-0.5); CALCIUM 8.5 mg/dL (8.4-11.0); CREATININE 0.6 mg/dL (0.55-1.30); POTASSIUM 4.2 mmol/L (3.5-5.1)
[2020-11-25 05:12] LABS: ERYTHROCYTE SEDIMENTATION RATE 77 MM/HR (0-20)
[2020-11-25] MEDS: PIPERACILLIN/TAZO 2.25G/DEX-IS 50 ML IV SCH ×2 (07:00→12:21)
[2020-11-25] MEDS: INSULIN REGULAR, HUMAN 100 UNITS/ML, 10 ML VIAL (humuLIN R) SUBCUT PRN ×2 (07:05→17:58)
[2020-11-25] MEDS: ASCORBIC ACID 500 MG TABLET PO SCH (09:00)
[2020-11-25] MEDS: methylPREDNISolone SOD SUCC 40 MG/ML VIAL IVP SCH ×2 (09:00→20:45)
[2020-11-25] MEDS: guaiFENesin ER 600 MG TAB PO SCH ×2 (09:00→20:45)
[2020-11-25] MEDS: CHOLECALCIFEROL (VITAMIN D-3) 400 UNIT TABLET PO SCH (09:00)
[2020-11-25] MEDS: ENOXAPARIN SODIUM 40 MG/0.4 ML SYRINGE SUBCUT SCH (09:09)
[2020-11-25] MEDS ORDERED: MORPHINE I.V. DRIP 100 ML IV ONE (10:34)
[2020-11-25] MEDS: FLUCONAZOLE 100 mg/ NS 50 ML IV SCH (14:01)
[2020-11-25] MEDS ORDERED: NALOXONE HCL 0.4 MG/ML AMP (NARCAN) IVP PRN (16:30)
[2020-11-25] MEDS: MEROPENEM 500 MG in NS 50 ML IV SCH (20:45)
[2020-11-26] VITALS (31 sets, daily range): BP systolic 102–192
[2020-11-26 04:41] LABS: BASOPHILS % (AUTO) 0.1 % (0.0-2.0); HEMATOCRIT 37.3 % (36-48); HEMOGLOBIN 12.2 g/dL (12.0-16.0); LYMPHOCYTES # (AUTO) 0.6 K/uL (1.0-5.5); LYMPHOCYTES % (AUTO) 2.8 % (20.5-51.5); MEAN CORPUSCULAR HEMOGLOBIN 30 pg (27-31); MEAN CORPUSCULAR HGB CONC 33 % (32-36); MEAN CORPUSCULAR VOLUME 92 fL (79.0-98.0); MONOCYTES # (AUTO) 0.3 K/uL (0.0-1.0); MONOCYTES % (AUTO) 1.3 % (1.7-9.3); NEUTROPHILS # (AUTO) 21.3 K/uL (1.8-7.7); NEUTROPHILS % (AUTO) 95.8 % (40.0-70.0); PLATELET COUNT (AUTO) 145 K/uL (130-430); RED BLOOD CELL COUNT(AUTO) 4.03 MIL/uL (4.2-6.2); RED CELL DISTRIBUTION WIDTH 15.2 % (9.0-15.0); WHITE BLOOD COUNT (AUTO) 22.3 K/uL (4.8-10.8)
[2020-11-26 04:42] LABS: CALCIUM 8.5 mg/dL (8.4-11.0); CREATININE 0.58 mg/dL (0.55-1.30); POTASSIUM 4.2 mmol/L (3.5-5.1)
[2020-11-26 04:48] LABS: C-REACTIVE PROTEIN QUANT 22.9 mg/dL (0-0.5)
[2020-11-26 05:35] LABS: ERYTHROCYTE SEDIMENTATION RATE 82 MM/HR (0-20)
[2020-11-26] MEDS: MEROPENEM 500 MG in NS 50 ML IV SCH ×3 (06:00→22:00)
[2020-11-26] MEDS: guaiFENesin ER 600 MG TAB PO SCH ×2 (09:01→21:11)
[2020-11-26] MEDS: CHOLECALCIFEROL (VITAMIN D-3) 400 UNIT TABLET PO SCH (09:01)
[2020-11-26] MEDS: methylPREDNISolone SOD SUCC 40 MG/ML VIAL IVP SCH ×2 (09:02→21:11)
[2020-11-26] MEDS: ENOXAPARIN SODIUM 40 MG/0.4 ML SYRINGE SUBCUT SCH (09:11)
[2020-11-26] MEDS: ASCORBIC ACID 500 MG TABLET PO SCH (09:29)
[2020-11-26] MEDS: PROPOFOL DRIP 100 ML IV PRN ×2 (12:02→21:20)
[2020-11-26] MEDS: FLUCONAZOLE 100 mg/ NS 50 ML IV SCH (12:19)
[2020-11-26] MEDS: MORPHINE I.V. DRIP 100 ML IV PRN (12:30)
[2020-11-27] VITALS (28 sets, daily range): BP systolic 94–133
[2020-11-27 04:29] LABS: BASOPHILS # (AUTO) 0.1 K/uL (0.0-0.2); BASOPHILS % (AUTO) 0.3 % (0.0-2.0); HEMOGLOBIN 12.5 g/dL (12.0-16.0); LYMPHOCYTES # (AUTO) 0.6 K/uL (1.0-5.5); LYMPHOCYTES % (AUTO) 2.5 % (20.5-51.5); MEAN CORPUSCULAR HEMOGLOBIN 31 pg (27-31); MEAN CORPUSCULAR HGB CONC 33 % (32-36); MEAN CORPUSCULAR VOLUME 93 fL (79.0-98.0); MONOCYTES # (AUTO) 0.2 K/uL (0.0-1.0); MONOCYTES % (AUTO) 0.9 % (1.7-9.3); NEUTROPHILS # (AUTO) 23.9 K/uL (1.8-7.7); NEUTROPHILS % (AUTO) 96.3 % (40.0-70.0); PLATELET COUNT (AUTO) 166 K/uL (130-430); RED BLOOD CELL COUNT(AUTO) 4.11 MIL/uL (4.2-6.2); RED CELL DISTRIBUTION WIDTH 15.1 % (9.0-15.0); WHITE BLOOD COUNT (AUTO) 24.8 K/uL (4.8-10.8)
[2020-11-27] MEDS: PROPOFOL DRIP 100 ML IV PRN ×3 (04:39→13:12)
[2020-11-27 04:42] LABS: CALCIUM 8.9 mg/dL (8.4-11.0); CREATININE 0.62 mg/dL (0.55-1.30); POTASSIUM 4.6 mmol/L (3.5-5.1)
[2020-11-27 04:51] LABS: C-REACTIVE PROTEIN QUANT 32.4 mg/dL (0-0.5)
[2020-11-27 05:01] LABS: ERYTHROCYTE SEDIMENTATION RATE 86 MM/HR (0-20)
[2020-11-27] MEDS: MEROPENEM 500 MG in NS 50 ML IV SCH ×3 (06:08→22:14)
[2020-11-27] MEDS: INSULIN REGULAR, HUMAN 100 UNITS/ML, 10 ML VIAL (humuLIN R) SUBCUT PRN ×4 (06:10→23:36)
[2020-11-27] MEDS: CHOLECALCIFEROL (VITAMIN D-3) 400 UNIT TABLET PO SCH (07:59)
[2020-11-27] MEDS: methylPREDNISolone SOD SUCC 40 MG/ML VIAL IVP SCH ×2 (07:59→20:55)
[2020-11-27] MEDS: guaiFENesin ER 600 MG TAB PO SCH ×2 (07:59→20:55)
[2020-11-27] MEDS: ENOXAPARIN SODIUM 40 MG/0.4 ML SYRINGE SUBCUT SCH (07:59)
[2020-11-27] MEDS: ASCORBIC ACID 500 MG TABLET PO SCH (07:59)
[2020-11-27] MEDS: FLUCONAZOLE 100 mg/ NS 50 ML IV SCH (12:18)
[2020-11-28] VITALS (27 sets, daily range): BP systolic 109–149
[2020-11-28] MEDS: MEROPENEM 500 MG in NS 50 ML IV SCH ×3 (05:44→21:01)
[2020-11-28] MEDS: PROPOFOL DRIP 100 ML IV PRN ×3 (05:49→23:22)
[2020-11-28] MEDS: INSULIN REGULAR, HUMAN 100 UNITS/ML, 10 ML VIAL (humuLIN R) SUBCUT PRN ×3 (06:10→23:25)
[2020-11-28 08:38] LABS: BASOPHILS # (AUTO) 0.1 K/uL (0.0-0.2); BASOPHILS % (AUTO) 0.5 % (0.0-2.0); EOSINOPHILS % (AUTO) 0.1 % (0.0-4.0); HEMATOCRIT 38.4 % (36-48); HEMOGLOBIN 12.5 g/dL (12.0-16.0); LYMPHOCYTES # (AUTO) 0.9 K/uL (1.0-5.5); LYMPHOCYTES % (AUTO) 3.3 % (20.5-51.5); MEAN CORPUSCULAR HEMOGLOBIN 30 pg (27-31); MEAN CORPUSCULAR HGB CONC 33 % (32-36); MEAN CORPUSCULAR VOLUME 93 fL (79.0-98.0); MONOCYTES # (AUTO) 0.4 K/uL (0.0-1.0); MONOCYTES % (AUTO) 1.5 % (1.7-9.3); NEUTROPHILS # (AUTO) 25.6 K/uL (1.8-7.7); NEUTROPHILS % (AUTO) 94.6 % (40.0-70.0); PLATELET COUNT (AUTO) 200 K/uL (130-430); RED BLOOD CELL COUNT(AUTO) 4.11 MIL/uL (4.2-6.2); RED CELL DISTRIBUTION WIDTH 15.4 % (9.0-15.0)
[2020-11-28 09:48] LABS: CALCIUM 9.7 mg/dL (8.4-11.0); CREATININE 0.55 mg/dL (0.55-1.30); POTASSIUM 4.8 mmol/L (3.5-5.1)
[2020-11-28] MEDS: methylPREDNISolone SOD SUCC 40 MG/ML VIAL IVP SCH ×2 (10:16→21:00)
[2020-11-28] MEDS: CHOLECALCIFEROL (VITAMIN D-3) 400 UNIT TABLET PO SCH (10:16)
[2020-11-28] MEDS: guaiFENesin ER 600 MG TAB PO SCH ×2 (10:16→21:00)
[2020-11-28] MEDS: ASCORBIC ACID 500 MG TABLET PO SCH (10:16)
[2020-11-28] MEDS: ENOXAPARIN SODIUM 40 MG/0.4 ML SYRINGE SUBCUT SCH (10:17)
[2020-11-28] MEDS: FLUCONAZOLE 100 mg/ NS 50 ML IV SCH (12:02)
[2020-11-28] MEDS: MICAFUNGIN SODIUM 50 MG in NS 100 ML IV SCH (15:14)
[2020-11-28] MEDS: MORPHINE I.V. DRIP 100 ML IV PRN (23:23)
[2020-11-29] VITALS (30 sets, daily range): BP systolic 80–166
[2020-11-29] MEDS: PROPOFOL DRIP 100 ML IV PRN ×3 (04:33→18:14)
[2020-11-29 06:09] LABS: CALCIUM 9.4 mg/dL (8.4-11.0); CHLORIDE 108 mmol/L (98-107); CREATININE 0.52 mg/dL (0.55-1.30); GLUCOSE 171 mg/dL (70-99); PHOSPHORUS 2.3 mg/dL (2.7-4.5); POTASSIUM 4.8 mmol/L (3.5-5.1); SODIUM SERUM 144 mmol/L (136-145); UREA NITROGEN, BLOOD 30 mg/dL (8-21)
[2020-11-29 06:10] LABS: C-REACTIVE PROTEIN QUANT 33.2 mg/dL (0-0.5)
[2020-11-29 06:17] LABS: ANION GAP < 3 (5-15)
[2020-11-29 06:30] LABS: BASOPHILS % (AUTO) 0.1 % (0.0-2.0); HEMATOCRIT 37.7 % (36-48); HEMOGLOBIN 12.2 g/dL (12.0-16.0); LYMPHOCYTES # (AUTO) 0.9 K/uL (1.0-5.5); LYMPHOCYTES % (AUTO) 3.5 % (20.5-51.5); MEAN CORPUSCULAR HEMOGLOBIN 30 pg (27-31); MEAN CORPUSCULAR HGB CONC 32 % (32-36); MEAN CORPUSCULAR VOLUME 94 fL (79.0-98.0); MONOCYTES # (AUTO) 0.5 K/uL (0.0-1.0); MONOCYTES % (AUTO) 1.8 % (1.7-9.3); NEUTROPHILS % (AUTO) 94.6 % (40.0-70.0); PLATELET COUNT (AUTO) 222 K/uL (130-430); RED BLOOD CELL COUNT(AUTO) 4.02 MIL/uL (4.2-6.2); RED CELL DISTRIBUTION WIDTH 15.4 % (9.0-15.0); WHITE BLOOD COUNT (AUTO) 26.5 K/uL (4.8-10.8)
[2020-11-29] MEDS: MEROPENEM 500 MG in NS 50 ML IV SCH ×3 (06:50→22:08)
[2020-11-29] MEDS: INSULIN REGULAR, HUMAN 100 UNITS/ML, 10 ML VIAL (humuLIN R) SUBCUT PRN ×4 (06:51→23:41)
[2020-11-29 08:26] LABS: ERYTHROCYTE SEDIMENTATION RATE 83 MM/HR (0-20)
[2020-11-29] MEDS: ASCORBIC ACID 500 MG TABLET PO SCH (09:00)
[2020-11-29] MEDS: CHOLECALCIFEROL (VITAMIN D-3) 400 UNIT TABLET PO SCH (09:00)
[2020-11-29] MEDS: guaiFENesin ER 600 MG TAB PO SCH ×2 (09:00→22:08)
[2020-11-29] MEDS: methylPREDNISolone SOD SUCC 40 MG/ML VIAL IVP SCH ×2 (10:25→22:08)
[2020-11-29] MEDS: ENOXAPARIN SODIUM 40 MG/0.4 ML SYRINGE SUBCUT SCH (10:26)
[2020-11-29] MEDS: FLUCONAZOLE 100 mg/ NS 50 ML IV SCH (12:56)
[2020-11-29] MEDS: MICAFUNGIN SODIUM 50 MG in NS 100 ML IV SCH (14:52)
[2020-11-30] VITALS (27 sets, daily range): BP systolic 122–178
[2020-11-30] MEDS: PROPOFOL DRIP 100 ML IV PRN ×4 (03:39→23:53)
[2020-11-30 05:31] LABS: CALCIUM 9.2 mg/dL (8.4-11.0); CREATININE 0.51 mg/dL (0.55-1.30); POTASSIUM 4.6 mmol/L (3.5-5.1)
[2020-11-30 05:58] LABS: C-REACTIVE PROTEIN QUANT 38.1 mg/dL (0-0.5)
[2020-11-30] MEDS: MEROPENEM 500 MG in NS 50 ML IV SCH ×3 (06:48→21:11)
[2020-11-30] MEDS: INSULIN REGULAR, HUMAN 100 UNITS/ML, 10 ML VIAL (humuLIN R) SUBCUT PRN ×4 (06:49→23:52)
[2020-11-30 07:59] LABS: ERYTHROCYTE SEDIMENTATION RATE 90 MM/HR (0-20)
[2020-11-30] MEDS: guaiFENesin ER 600 MG TAB PO SCH ×2 (08:07→21:11)
[2020-11-30] MEDS: CHOLECALCIFEROL (VITAMIN D-3) 400 UNIT TABLET PO SCH (08:07)
[2020-11-30] MEDS: methylPREDNISolone SOD SUCC 40 MG/ML VIAL IVP SCH ×2 (08:07→21:11)
[2020-11-30] MEDS: ASCORBIC ACID 500 MG TABLET PO SCH (08:07)
[2020-11-30] MEDS: MORPHINE I.V. DRIP 100 ML IV PRN (08:09)
[2020-11-30] MEDS: ENOXAPARIN SODIUM 40 MG/0.4 ML SYRINGE SUBCUT SCH (08:09)
[2020-11-30 10:39] LABS: BASOPHILS % (AUTO) 0.2 % (0.0-2.0); EOSINOPHILS % (AUTO) 0.2 % (0.0-4.0); HEMATOCRIT 37.7 % (36-48); HEMOGLOBIN 12.2 g/dL (12.0-16.0); LYMPHOCYTES # (AUTO) 0.9 K/uL (1.0-5.5); LYMPHOCYTES % (AUTO) 3.3 % (20.5-51.5); MEAN CORPUSCULAR HEMOGLOBIN 30 pg (27-31); MEAN CORPUSCULAR HGB CONC 32 % (32-36); MEAN CORPUSCULAR VOLUME 94 fL (79.0-98.0); MONOCYTES # (AUTO) 0.4 K/uL (0.0-1.0); MONOCYTES % (AUTO) 1.6 % (1.7-9.3); NEUTROPHILS # (AUTO) 25.1 K/uL (1.8-7.7); NEUTROPHILS % (AUTO) 94.7 % (40.0-70.0); PLATELET COUNT (AUTO) 245 K/uL (130-430); RED BLOOD CELL COUNT(AUTO) 4.01 MIL/uL (4.2-6.2); RED CELL DISTRIBUTION WIDTH 15.8 % (9.0-15.0); WHITE BLOOD COUNT (AUTO) 26.5 K/uL (4.8-10.8)
[2020-11-30] MEDS: MICAFUNGIN SODIUM 50 MG in NS 100 ML IV SCH (14:00)
[2020-11-30] MEDS: NOREPINEPHRINE BITARTRATE 4 MG in D5W 246 ML IV PRN (23:54)
[2020-12-01] VITALS (29 sets, daily range): BP systolic 106–141
[2020-12-01 05:21] LABS: HEMATOCRIT 36.2 % (36-48); HEMOGLOBIN 11.6 g/dL (12.0-16.0); MEAN CORPUSCULAR HEMOGLOBIN 30 pg (27-31); MEAN CORPUSCULAR HGB CONC 32 % (32-36); MEAN CORPUSCULAR VOLUME 95 fL (79.0-98.0); PLATELET COUNT (AUTO) 236 K/uL (130-430); RED BLOOD CELL COUNT(AUTO) 3.83 MIL/uL (4.2-6.2); RED CELL DISTRIBUTION WIDTH 15.5 % (9.0-15.0); WHITE BLOOD COUNT (AUTO) 23.5 K/uL (4.8-10.8)
[2020-12-01 05:27] LABS: CALCIUM 9.5 mg/dL (8.4-11.0); CHLORIDE 109 mmol/L (98-107); CREATININE 0.51 mg/dL (0.55-1.30); GLUCOSE 238 mg/dL (70-99); PHOSPHORUS 2.9 mg/dL (2.7-4.5); SODIUM SERUM 146 mmol/L (136-145); UREA NITROGEN, BLOOD 31 mg/dL (8-21)
[2020-12-01 05:33] LABS: GFR AFRICAN AMERICAN 153 mL/min (>90)
[2020-12-01 05:34] LABS: ANION GAP < 3 (5-15)
[2020-12-01] MEDS: MEROPENEM 500 MG in NS 50 ML IV SCH ×3 (06:10→21:52)
[2020-12-01] MEDS: INSULIN REGULAR, HUMAN 100 UNITS/ML, 10 ML VIAL (humuLIN R) SUBCUT PRN ×3 (06:11→23:36)
[2020-12-01 06:20] LABS: BAND % (MANUAL) 22 % (0-6); BASOPHILS % (MANUAL) 0 % (0-2); EOSINOPHILS % (MANUAL) 0 % (0-7); LYMPHOCYTES % (MANUAL) 4 % (20-46); MONOCYTES % (MANUAL) 0 % (0-11)
[2020-12-01] MEDS: ENOXAPARIN SODIUM 40 MG/0.4 ML SYRINGE SUBCUT SCH (08:53)
[2020-12-01] MEDS: guaiFENesin ER 600 MG TAB PO SCH ×2 (08:53→21:52)
[2020-12-01] MEDS: CHOLECALCIFEROL (VITAMIN D-3) 400 UNIT TABLET PO SCH (08:53)
[2020-12-01] MEDS: methylPREDNISolone SOD SUCC 40 MG/ML VIAL IVP SCH ×2 (08:53→20:58)
[2020-12-01] MEDS: ASCORBIC ACID 500 MG TABLET PO SCH (08:53)
[2020-12-01] MEDS: PROPOFOL DRIP 100 ML IV PRN ×4 (08:54→22:23)
[2020-12-01] MEDS: MICAFUNGIN SODIUM 50 MG in NS 100 ML IV SCH (13:48)
[2020-12-01] MEDS: MORPHINE I.V. DRIP 100 ML IV PRN (15:00)
[2020-12-02] VITALS (27 sets, daily range): BP systolic 72–151
[2020-12-02] MEDS: PROPOFOL DRIP 100 ML IV PRN ×3 (02:30→12:02)
[2020-12-02] MEDS: MEROPENEM 500 MG in NS 50 ML IV SCH ×3 (05:42→23:19)
[2020-12-02] MEDS: INSULIN REGULAR, HUMAN 100 UNITS/ML, 10 ML VIAL (humuLIN R) SUBCUT PRN ×2 (05:44→12:36)
[2020-12-02] MEDS: methylPREDNISolone SOD SUCC 40 MG/ML VIAL IVP SCH ×2 (09:13→21:00)
[2020-12-02] MEDS: ASCORBIC ACID 500 MG TABLET PO SCH (09:13)
[2020-12-02] MEDS: CHOLECALCIFEROL (VITAMIN D-3) 400 UNIT TABLET PO SCH (09:14)
[2020-12-02] MEDS: guaiFENesin ER 600 MG TAB PO SCH ×2 (09:14→21:00)
[2020-12-02] MEDS: ENOXAPARIN SODIUM 40 MG/0.4 ML SYRINGE SUBCUT SCH (09:21)
[2020-12-02 09:52] LABS: HEMATOCRIT 38.8 % (36-48); HEMOGLOBIN 12.3 g/dL (12.0-16.0); MEAN CORPUSCULAR HEMOGLOBIN 31 pg (27-31); MEAN CORPUSCULAR HGB CONC 32 % (32-36); MEAN CORPUSCULAR VOLUME 96 fL (79.0-98.0); PLATELET COUNT (AUTO) 302 K/uL (130-430); RED BLOOD CELL COUNT(AUTO) 4.04 MIL/uL (4.2-6.2); RED CELL DISTRIBUTION WIDTH 15.5 % (9.0-15.0)
[2020-12-02 10:39] LABS: CALCIUM 9.4 mg/dL (8.4-11.0); CREATININE 0.5 mg/dL (0.55-1.30); PHOSPHORUS 2.8 mg/dL (2.7-4.5); POTASSIUM 5.3 mmol/L (3.5-5.1)
[2020-12-02 10:45] LABS: BAND % (MANUAL) 40 % (0-6); BASOPHILS % (MANUAL) 0 % (0-2); EOSINOPHILS % (MANUAL) 0 % (0-7); LYMPHOCYTES % (MANUAL) 3 % (20-46); MONOCYTES % (MANUAL) 4 % (0-11)
[2020-12-02] MEDS: MORPHINE I.V. DRIP 100 ML IV PRN (11:59)
[2020-12-02] MEDS: MICAFUNGIN SODIUM 50 MG in NS 100 ML IV SCH (14:00)
[2020-12-02] MEDS ORDERED: NOREPINEPHRINE 4 MG/4 ML VIAL IV ONE (15:24)
[2020-12-02] MEDS ORDERED: NOREPINEPHRINE BITARTRATE 16 MG in NS 234 ML IV PRN (15:30)
[2020-12-03] VITALS (28 sets, daily range): BP systolic 85–124
[2020-12-03] MEDS: INSULIN REGULAR, HUMAN 100 UNITS/ML, 10 ML VIAL (humuLIN R) SUBCUT PRN ×4 (05:48→18:47)
[2020-12-03] MEDS: MEROPENEM 500 MG in NS 50 ML IV SCH ×3 (07:00→22:00)
[2020-12-03 07:43] LABS: HEMATOCRIT 36.3 % (36-48); HEMOGLOBIN 12.1 g/dL (12.0-16.0); MEAN CORPUSCULAR HEMOGLOBIN 31 pg (27-31); MEAN CORPUSCULAR HGB CONC 33 % (32-36); MEAN CORPUSCULAR VOLUME 94 fL (79.0-98.0); PLATELET COUNT (AUTO) 260 K/uL (130-430); RED BLOOD CELL COUNT(AUTO) 3.86 MIL/uL (4.2-6.2); RED CELL DISTRIBUTION WIDTH 15.3 % (9.0-15.0); WHITE BLOOD COUNT (AUTO) 29.9 K/uL (4.8-10.8)
[2020-12-03] MEDS: methylPREDNISolone SOD SUCC 40 MG/ML VIAL IVP SCH ×2 (08:00→22:21)
[2020-12-03] MEDS: guaiFENesin ER 600 MG TAB PO SCH ×2 (08:01→21:00)
[2020-12-03] MEDS: ASCORBIC ACID 500 MG TABLET PO SCH (08:01)
[2020-12-03] MEDS: CHOLECALCIFEROL (VITAMIN D-3) 400 UNIT TABLET PO SCH (08:02)
[2020-12-03] MEDS: ENOXAPARIN SODIUM 40 MG/0.4 ML SYRINGE SUBCUT SCH (08:03)
[2020-12-03 08:26] LABS: CREATININE 0.57 mg/dL (0.55-1.30)
[2020-12-03 08:28] LABS: BAND % (MANUAL) 18 % (0-6); LYMPHOCYTES % (MANUAL) 5 % (20-46)
[2020-12-03 08:29] LABS: ATYPICAL LYMPHOCYTES % 0 % (0-0); BASOPHILS % (MANUAL) 0 % (0-2); EOSINOPHILS % (MANUAL) 0 % (0-7); MONOCYTES % (MANUAL) 1 % (0-11); PHOSPHORUS 1.6 mg/dL (2.7-4.5)
[2020-12-03] MEDS: MORPHINE I.V. DRIP 100 ML IV PRN (11:20)
[2020-12-03] MEDS: PROPOFOL DRIP 100 ML IV PRN ×2 (12:05→17:20)
[2020-12-03] MEDS: ACETAMINOPHEN 650 MG/20.3 ML UDC GT PRN ×2 (12:15→18:15)
[2020-12-03] MEDS: MICAFUNGIN SODIUM 50 MG in NS 100 ML IV SCH (13:30)
[2020-12-03] MEDS ORDERED: ACETAMINOPHEN 325 MG TABLET ONE (17:58)
[2020-12-03] MEDS: DOCUSATE SODIUM 100 MG/10 ML UDC PO SCH (22:21)
[2020-12-04] VITALS (30 sets, daily range): BP systolic 92–153
[2020-12-04] MEDS: PROPOFOL DRIP 100 ML IV PRN ×4 (01:09→21:32)
[2020-12-04] MEDS ORDERED: ACETAMINOPHEN 325 MG TABLET ONE (04:10)
[2020-12-04] MEDS: MEROPENEM 500 MG in NS 50 ML IV SCH ×3 (06:35→21:31)
[2020-12-04] MEDS: INSULIN REGULAR, HUMAN 100 UNITS/ML, 10 ML VIAL (humuLIN R) SUBCUT PRN ×2 (06:36→12:55)
[2020-12-04] MEDS: DOCUSATE SODIUM 100 MG/10 ML UDC PO SCH ×2 (08:47→20:03)
[2020-12-04] MEDS: guaiFENesin ER 600 MG TAB PO SCH ×2 (08:48→20:04)
[2020-12-04] MEDS: methylPREDNISolone SOD SUCC 40 MG/ML VIAL IVP SCH ×2 (08:48→20:03)
[2020-12-04] MEDS: CHOLECALCIFEROL (VITAMIN D-3) 400 UNIT TABLET PO SCH (08:49)
[2020-12-04] MEDS: ASCORBIC ACID 500 MG TABLET PO SCH (08:50)
[2020-12-04] MEDS: ACETAMINOPHEN 650 MG/20.3 ML UDC GT PRN ×2 (09:18→15:18)
[2020-12-04] MEDS: MORPHINE I.V. DRIP 100 ML IV PRN (11:30)
[2020-12-04] MEDS: MICAFUNGIN SODIUM 50 MG in NS 100 ML IV SCH (14:35)
[2020-12-04] MEDS ORDERED: DILTIAZEM HCL 25 MG/5 ML VIAL ONE (16:19)
[2020-12-04] MEDS: DILTIAZEM HCL 25 MG/5 ML VIAL IVP PRN ×4 (16:21→19:21)
[2020-12-04] MEDS ORDERED: DILTIAZEM HCL 125 MG/25 ML VIAL IV ONE (20:27)
[2020-12-05] VITALS (27 sets, daily range): BP systolic 80–127
[2020-12-05] MEDS: INSULIN REGULAR, HUMAN 100 UNITS/ML, 10 ML VIAL (humuLIN R) SUBCUT PRN ×4 (00:02→17:46)
[2020-12-05] MEDS: ACETAMINOPHEN 650 MG/20.3 ML UDC GT PRN (00:03)
[2020-12-05] MEDS: PROPOFOL DRIP 100 ML IV PRN ×2 (02:22→06:18)
[2020-12-05] MEDS ORDERED: DILTIAZEM HCL 125 MG/25 ML VIAL IV ONE (03:44)
[2020-12-05] MEDS: MEROPENEM 500 MG in NS 50 ML IV SCH (06:16)
[2020-12-05 07:00] LABS: BASOPHILS % (AUTO) 0.1 % (0.0-2.0); EOSINOPHILS # (AUTO) 0.3 K/uL (0.0-0.4); HEMATOCRIT 34.4 % (36-48); HEMOGLOBIN 11.6 g/dL (12.0-16.0); LYMPHOCYTES # (AUTO) 1.8 K/uL (1.0-5.5); LYMPHOCYTES % (AUTO) 5.8 % (20.5-51.5); MEAN CORPUSCULAR HEMOGLOBIN 31 pg (27-31); MEAN CORPUSCULAR HGB CONC 34 % (32-36); MEAN CORPUSCULAR VOLUME 93 fL (79.0-98.0); MONOCYTES # (AUTO) 0.5 K/uL (0.0-1.0); MONOCYTES % (AUTO) 1.5 % (1.7-9.3); NEUTROPHILS # (AUTO) 28.2 K/uL (1.8-7.7); NEUTROPHILS % (AUTO) 91.6 % (40.0-70.0); PLATELET COUNT (AUTO) 214 K/uL (130-430); RED CELL DISTRIBUTION WIDTH 15.5 % (9.0-15.0)
[2020-12-05] MEDS ORDERED: AMIODARONE HCL 150 MG/3ML VIAL ONE (08:10)
[2020-12-05] MEDS ORDERED: AMIODARONE HCL 150 MG in D5W 100 ML IV ONE (08:15)
[2020-12-05] MEDS ORDERED: AMIODARONE HCL 450 MG in D5W 241 ML IV SCH (08:15)
[2020-12-05 08:22] LABS: ALBUMIN 0.8 g/dL (3.4-4.8); CALCIUM 8.9 mg/dL (8.4-11.0); CREATININE 0.62 mg/dL (0.55-1.30); POTASSIUM 4.5 mmol/L (3.5-5.1); TOTAL BILIRUBIN 0.4 mg/dL (0.0-1.0)
[2020-12-05] MEDS ORDERED: AMIODARONE HCL 150 MG/3ML VIAL IVP ONE (08:30)
[2020-12-05] MEDS: ASCORBIC ACID 500 MG TABLET PO SCH (08:42)
[2020-12-05] MEDS: methylPREDNISolone SOD SUCC 40 MG/ML VIAL IVP SCH ×2 (08:42→21:34)
[2020-12-05] MEDS: DOCUSATE SODIUM 100 MG/10 ML UDC PO SCH ×2 (08:42→21:35)
[2020-12-05] MEDS: ENOXAPARIN SODIUM 40 MG/0.4 ML SYRINGE SUBCUT SCH (08:42)
[2020-12-05] MEDS: guaiFENesin ER 600 MG TAB PO SCH ×2 (08:42→21:35)
[2020-12-05] MEDS: CHOLECALCIFEROL (VITAMIN D-3) 400 UNIT TABLET PO SCH (08:42)
[2020-12-05 09:37] LABS: WHITE BLOOD COUNT (AUTO) 30.8 K/uL (4.8-10.8)
[2020-12-05] MEDS ORDERED: COMMUNICATION ORDER XX ONE (10:45)
[2020-12-05] MEDS: LEVOFLOXACIN 250 MG/D5W 50 ML IV SCH (14:19)
[2020-12-06] VITALS (29 sets, daily range): BP systolic 83–148
[2020-12-06] MEDS: PROPOFOL DRIP 100 ML IV PRN ×3 (00:20→20:10)
[2020-12-06] MEDS: INSULIN REGULAR, HUMAN 100 UNITS/ML, 10 ML VIAL (humuLIN R) SUBCUT PRN ×4 (00:23→17:54)
[2020-12-06 06:38] LABS: BASOPHILS # (AUTO) 0.1 K/uL (0.0-0.2); BASOPHILS % (AUTO) 0.2 % (0.0-2.0); EOSINOPHILS % (AUTO) 0.1 % (0.0-4.0); HEMATOCRIT 34.4 % (36-48); HEMOGLOBIN 11.4 g/dL (12.0-16.0); LYMPHOCYTES # (AUTO) 1.1 K/uL (1.0-5.5); LYMPHOCYTES % (AUTO) 3.1 % (20.5-51.5); MEAN CORPUSCULAR HEMOGLOBIN 31 pg (27-31); MEAN CORPUSCULAR HGB CONC 33 % (32-36); MEAN CORPUSCULAR VOLUME 94 fL (79.0-98.0); MONOCYTES # (AUTO) 0.4 K/uL (0.0-1.0); MONOCYTES % (AUTO) 1.3 % (1.7-9.3); NEUTROPHILS # (AUTO) 32.9 K/uL (1.8-7.7); PLATELET COUNT (AUTO) 210 K/uL (130-430); RED BLOOD CELL COUNT(AUTO) 3.66 MIL/uL (4.2-6.2); RED CELL DISTRIBUTION WIDTH 15.4 % (9.0-15.0)
[2020-12-06] MEDS: ENOXAPARIN SODIUM 40 MG/0.4 ML SYRINGE SUBCUT SCH (08:16)
[2020-12-06] MEDS: DOCUSATE SODIUM 100 MG/10 ML UDC PO SCH ×2 (08:18→21:33)
[2020-12-06] MEDS: guaiFENesin ER 600 MG TAB PO SCH ×2 (08:18→21:33)
[2020-12-06] MEDS: ASCORBIC ACID 500 MG TABLET PO SCH (08:18)
[2020-12-06] MEDS: methylPREDNISolone SOD SUCC 40 MG/ML VIAL IVP SCH ×2 (08:18→21:33)
[2020-12-06] MEDS: CHOLECALCIFEROL (VITAMIN D-3) 400 UNIT TABLET PO SCH (08:18)
[2020-12-06] MEDS ORDERED: BISACODYL 10 MG/SUPPOSITORY RC PRN (09:00)
[2020-12-06 09:16] LABS: WHITE BLOOD COUNT (AUTO) 34.5 K/uL (4.8-10.8)
[2020-12-06 09:17] LABS: NEUTROPHILS % (AUTO) 95.3 % (40.0-70.0)
[2020-12-06 10:26] LABS: CALCIUM 8.9 mg/dL (8.4-11.0); CREATININE 0.53 mg/dL (0.55-1.30); POTASSIUM 3.9 mmol/L (3.5-5.1)
[2020-12-06] MEDS: LEVOFLOXACIN 250 MG/D5W 50 ML IV SCH (13:14)
[2020-12-06] MEDS ORDERED: NALOXONE HCL 0.4 MG/ML AMP (NARCAN) IVP PRN (13:30)
[2020-12-06] MEDS ORDERED: MORPHINE I.V. DRIP 100 ML IV PRN (13:30)
[2020-12-06] MEDS ORDERED: PROPOFOL DRIP 100 ML IV ONE (14:05)
[2020-12-06] MEDS: FLUCONAZOLE 200 mg/ NS 100 ML IV SCH (18:08)
[2020-12-06] MEDS ORDERED: AMIODARONE HCL 200 MG TABLET ONE (21:18)
[2020-12-06] MEDS: SENNA 8.8 MG/5 ML UDC GT SCH (21:33)
[2020-12-06] MEDS: AMIODARONE HCL 200 MG TABLET PO SCH (21:33)
[2020-12-07] VITALS (27 sets, daily range): BP systolic 112–171
[2020-12-07] MEDS: PROPOFOL DRIP 100 ML IV PRN ×2 (00:37→05:53)
[2020-12-07] MEDS: INSULIN REGULAR, HUMAN 100 UNITS/ML, 10 ML VIAL (humuLIN R) SUBCUT PRN ×3 (05:51→23:42)
[2020-12-07 06:23] LABS: HEMATOCRIT 32.7 % (36-48); HEMOGLOBIN 11.3 g/dL (12.0-16.0); MEAN CORPUSCULAR HEMOGLOBIN 33 pg (27-31); MEAN CORPUSCULAR HGB CONC 35 % (32-36); MEAN CORPUSCULAR VOLUME 94 fL (79.0-98.0); PLATELET COUNT (AUTO) 221 K/uL (130-430); RED BLOOD CELL COUNT(AUTO) 3.47 MIL/uL (4.2-6.2); RED CELL DISTRIBUTION WIDTH 15.1 % (9.0-15.0)
[2020-12-07 08:07] LABS: CALCIUM 9.1 mg/dL (8.4-11.0); CREATININE 0.45 mg/dL (0.55-1.30); POTASSIUM 3.7 mmol/L (3.5-5.1)
[2020-12-07] MEDS: AMIODARONE HCL 200 MG TABLET PO SCH ×2 (09:00→20:38)
[2020-12-07] MEDS: CHOLECALCIFEROL (VITAMIN D-3) 400 UNIT TABLET PO SCH (09:00)
[2020-12-07] MEDS: ENOXAPARIN SODIUM 40 MG/0.4 ML SYRINGE SUBCUT SCH (09:00)
[2020-12-07] MEDS: DOCUSATE SODIUM 100 MG/10 ML UDC PO SCH ×2 (09:00→20:35)
[2020-12-07] MEDS: ASCORBIC ACID 500 MG TABLET PO SCH (09:00)
[2020-12-07] MEDS: guaiFENesin ER 600 MG TAB PO SCH ×2 (09:00→21:43)
[2020-12-07] MEDS: methylPREDNISolone SOD SUCC 40 MG/ML VIAL IVP SCH ×2 (09:00→20:34)
[2020-12-07 11:05] LABS: WHITE BLOOD COUNT (AUTO) 31.2 K/uL (4.8-10.8)
[2020-12-07 11:19] LABS: ATYPICAL LYMPHOCYTES % 0 % (0-0); BAND % (MANUAL) 31 % (0-6); BASOPHILS % (MANUAL) 0 % (0-2); EOSINOPHILS % (MANUAL) 0 % (0-7); LYMPHOCYTES % (MANUAL) 2 % (20-46); MONOCYTES % (MANUAL) 2 % (0-11)
[2020-12-07] MEDS: LEVOFLOXACIN 250 MG/D5W 50 ML IV SCH (14:00)
[2020-12-07] MEDS: FLUCONAZOLE 200 mg/ NS 100 ML IV SCH (18:07)
[2020-12-07] MEDS: SENNA 8.8 MG/5 ML UDC GT SCH (20:34)
[2020-12-08] VITALS (11 sets, daily range): BP systolic 0–152
[2020-12-08] MEDS: DILTIAZEM HCL 25 MG/5 ML VIAL IVP PRN ×2 (01:21→04:44)
[2020-12-08] MEDS: INSULIN REGULAR, HUMAN 100 UNITS/ML, 10 ML VIAL (humuLIN R) SUBCUT PRN (05:53)
[2020-12-08] MEDS: PROPOFOL DRIP 100 ML IV PRN (05:54)
[2020-12-08 06:01] LABS: CALCIUM 9.3 mg/dL (8.4-11.0); CREATININE 0.7 mg/dL (0.55-1.30)
[2020-12-08 06:38] LABS: BASOPHILS # (AUTO) 0.1 K/uL (0.0-0.2); BASOPHILS % (AUTO) 0.2 % (0.0-2.0); EOSINOPHILS % (AUTO) 0.1 % (0.0-4.0); HEMATOCRIT 36.1 % (36-48); HEMOGLOBIN 11.8 g/dL (12.0-16.0); LYMPHOCYTES # (AUTO) 1.3 K/uL (1.0-5.5); LYMPHOCYTES % (AUTO) 3.9 % (20.5-51.5); MEAN CORPUSCULAR HEMOGLOBIN 31 pg (27-31); MEAN CORPUSCULAR HGB CONC 33 % (32-36); MEAN CORPUSCULAR VOLUME 94 fL (79.0-98.0); MONOCYTES # (AUTO) 0.6 K/uL (0.0-1.0); MONOCYTES % (AUTO) 1.6 % (1.7-9.3); NEUTROPHILS # (AUTO) 31.9 K/uL (1.8-7.7); PLATELET COUNT (AUTO) 279 K/uL (130-430); RED BLOOD CELL COUNT(AUTO) 3.83 MIL/uL (4.2-6.2); RED CELL DISTRIBUTION WIDTH 15.8 % (9.0-15.0)
[2020-12-08 08:29] LABS: WHITE BLOOD COUNT (AUTO) 33.9 K/uL (4.8-10.8)
[2020-12-08 08:30] LABS: NEUTROPHILS % (AUTO) 94.2 % (40.0-70.0)
[2020-12-08] MEDS ORDERED: NOREPINEPHRINE 4 MG/4 ML VIAL IV ONE (08:48)
[2020-12-08] MEDS: ASCORBIC ACID 500 MG TABLET PO SCH (09:00)
[2020-12-08] MEDS: CHOLECALCIFEROL (VITAMIN D-3) 400 UNIT TABLET PO SCH (09:00)
[2020-12-08] MEDS: methylPREDNISolone SOD SUCC 40 MG/ML VIAL IVP SCH (09:00)
[2020-12-08] MEDS: DOCUSATE SODIUM 100 MG/10 ML UDC PO SCH (09:00)
[2020-12-08] MEDS: guaiFENesin ER 600 MG TAB PO SCH (09:00)
[2020-12-08] MEDS: ENOXAPARIN SODIUM 40 MG/0.4 ML SYRINGE SUBCUT SCH (09:00)
[2020-12-08] MEDS ORDERED: VASOPRESSIN 40 UNITS in NS 38 ML IV PRN (09:15)
== END 2020-12-08 09:36 | disposition expired | DRG 870 ==
LOC: SED 22:51 → SIC 11-05 02:04
PROVIDERS: ADMIT Hospitalist; ATTEND Hospitalist
PROC: 5A09457 Assistance with Respiratory Ventilation, 24-96 Consecutive Hours, Continuous Positive Airway Pressure (ICD-10-PCS; 2020-11-05)
PROC: XW13325 Transfusion of Convalescent Plasma (Nonautologous) into Peripheral Vein, Percutaneous Approach, New Technology Group 5 (ICD-10-PCS; 2020-11-06)
PROC: 5A09457 Assistance with Respiratory Ventilation, 24-96 Consecutive Hours, Continuous Positive Airway Pressure (ICD-10-PCS; 2020-11-06)
PROC: 02HV33Z Insertion of Infusion Device into Superior Vena Cava, Percutaneous Approach (ICD-10-PCS; 2020-11-06)
PROC: B548ZZA Ultrasonography of Superior Vena Cava, Guidance (ICD-10-PCS; 2020-11-06)
PROC: 5A09357 Assistance with Respiratory Ventilation, Less than 24 Consecutive Hours, Continuous Positive Airway Pressure (ICD-10-PCS; 2020-11-08)
PROC: 5A09457 Assistance with Respiratory Ventilation, 24-96 Consecutive Hours, Continuous Positive Airway Pressure (ICD-10-PCS; 2020-11-09)
PROC: 5A09357 Assistance with Respiratory Ventilation, Less than 24 Consecutive Hours, Continuous Positive Airway Pressure (ICD-10-PCS; 2020-11-11)
PROC: 5A1955Z Respiratory Ventilation, Greater than 96 Consecutive Hours (ICD-10-PCS; principal; 2020-11-13)
PROC: 0BH17EZ Insertion of Endotracheal Airway into Trachea, Via Natural or Artificial Opening (ICD-10-PCS; 2020-11-13)
PROC: 5A12012 Performance of Cardiac Output, Single, Manual (ICD-10-PCS; 2020-12-08)
DX: A41.89 Other specified sepsis (principal); U07.1 COVID-19; J12.82 Pneumonia due to coronavirus disease 2019; J96.01 Acute respiratory failure with hypoxia; E43 Unspecified severe protein-calorie malnutrition; J15.9 Unspecified bacterial pneumonia; I21.A1 Myocardial infarction type 2; R65.21 Severe sepsis with septic shock; G93.41 Metabolic encephalopathy; E87.1 Hypo-osmolality and hyponatremia; D68.59 Other primary thrombophilia; I48.20 Chronic atrial fibrillation, unspecified; F41.9 Anxiety disorder, unspecified; E66.9 Obesity, unspecified; I46.9 Cardiac arrest, cause unspecified; J98.2 Interstitial emphysema; I10 Essential (primary) hypertension; J45.909 Unspecified asthma, uncomplicated; Z90.710 Acquired absence of both cervix and uterus; Z79.899 Other long term (current) drug therapy; Z88.1 Allergy status to other antibiotic agents; Z88.2 Allergy status to sulfonamides; Z68.32 Body mass index [BMI] 32.0-32.9, adult; Z87.440 Personal history of urinary (tract) infections
CPT/HCPCS: 36415; 36430; 36600; 71045; 80048; 80053; 80202-TC; 81000-TC; 82009-TC; 82550-TC; 82728; 82803-TC; 82962; 83036; 83605; 83615-TC; 83735-TC; 83880; 84100-TC; 84478-TC; 84484; 85007; 85025; 85027; 85379; 85384-TC; 85610-TC; 85651-TC; 85730-TC; 86140; 86886; 86900; 86901; 87040-TC; 87070-TC; 87081; 87086; 87205-TC; 92950; 93005; 94002; 94003; 94640; 94660; 96365; 96368; 96372; 96375; 99291; J0282; J0456; J0610; J0696; J1030; J1100; J1450; J1650; J1815; J1956; J2060; J2185; J2248; J2270; J2405; J2543; J2704; J3370; J3480; J3490; J7030; J7050; J7060; P9017; U0003